=== PATIENT | male | born 1965 | race Caucasian/White ===

== ENCOUNTER 2017-05-03 10:59 | Inpatient (IN) ==
[2017-05-03] MEDS ORDERED: ONDANSETRON 4 MG/2 ML VIAL IV PRN (15:06)
[2017-05-03] MEDS ORDERED: DEXTROSE 50% 25 GM/50 ML VIAL IV PRN (15:13)
[2017-05-03] MEDS ORDERED: GLUCAGON 1 MG VIAL IM PRN (15:13)
[2017-05-03] MEDS ORDERED: HYDROmorphone 2 MG/1 ML VIAL IV PRN (15:16)
[2017-05-03 16:03] LABS: Basophils % 0.3 % (0.0-0.8); Eosinophils % 0.1 % (0.00-10.9); Hematocrit 43.6 VOL% (42.0-52.0); Hemoglobin 14.1 GM/DL (14.0-18.0); Immature Granulocytes % 0.4 %; Immature Granulocytes Absolute 0.05 #; Lymphocytes # 1.1 10*3/uL (1.4-4.0); Lymphocytes % 9.3 % (21.2-54.2); Mean Corpuscular HGB Conc 32.3 GM/DL (32-36); Mean Corpuscular Hemoglobin 32 PG (27-34); Mean Corpuscular Volume 97.8 FL (87-102); Mean Platelet Volume 10.9 FL (9.6-12.0); Monocytes # 0.5 10*3/uL (0.11-0.8); Monocytes % 4.3 % (1.7-12.7); Neutrophils # 9.7 10*3/uL (1.4-7.4); Neutrophils % 85.6 % (38.7-73.9); Platelet Count 224 T/CUMM (130-400); Red Blood Count 4.46 MC/CUMM (3.8-5.5); Red Cell Distribution Width 13.6 % (9.3-17.3); White Blood Count 11.3 T/CUMM (4-12)
[2017-05-03 16:27] LABS: Calcium 9.6 MG/DL (8.5-10.1); Osmolality,Calculated 281.1 MOS/KG (273-304); Potassium 3.9 MMOL/L (3.5-5.1)
[2017-05-03 16:30] LABS: Albumin 3.7 G/DL (3.4-5.0); Bilirubin,Direct 3.17 MG/DL (0.0-0.20); Bilirubin,Total 4.2 MG/DL (0.2-1.0); Total Protein 6.9 G/DL (6.4-8.3)
[2017-05-03 16:39] LABS: Risk Ratio 3.01; VLDL CHOLESTEROL 17.4 MG/DL
[2017-05-03] MEDS: SODIUM CHLORIDE 0.9% 1,000 ML IV SCH (16:59)
[2017-05-03] MEDS: INSULIN LISPRO 100 UNIT/ML SUBCUT SCH ×2 (17:00→20:51)
[2017-05-03 17:15] LABS: Troponin I Only < 0.015 NG/ML (0.00-0.045)
[2017-05-03 18:06] LABS: Hepatitis A Ab IgM Quant 0.08 Index; Hepatitis A Ab IgM Result Negative (Negative); Hepatitis B Core IgM Quant 0.21 Index; Hepatitis B Core IgM Result Negative (Negative); Hepatitis B Surface Ag Quant < 0.10 Index; Hepatitis B Surface Ag Result Negative (Negative); Hepatitis C Virus Ab Quant 0.09 Index; Hepatitis C Virus Ab Result Negative (Negative)
[2017-05-03 18:10] LABS: Apearance,Urine CLEAR (Clear); Bilirubin,Urine Negative (Negative); Blood, Urine Negative (Negative); Glucose,Urine (UA) 50 mg/dL (Negative); Ketones,Urine 20 mg/dL (Negative); Mucus,Urine Occasional /LPF (Occasional); Nitrite,Urine Negative (Negative); Protein,Urine Negative; RBC,Urine <1 /HPF (0-4); Urine Color Amber (Yellow); Urine Specific Gravity 1.011 (1.001-1.035); WBC,Urine 2 /HPF (0-6)
[2017-05-03] MEDS: PIPERACILLIN/TAZOBACTAM 3,375 MG in SODIUM CHLORIDE 0.9% 100 ML IV SCH (19:46)
[2017-05-03 21:29] LABS: Troponin I Only < 0.015 NG/ML (0.00-0.045)
[2017-05-03] MEDS: METOPROLOL TARTRATE 25 MG TABLET PO SCH (22:11)
[2017-05-04] MEDS: PIPERACILLIN/TAZOBACTAM 3,375 MG in SODIUM CHLORIDE 0.9% 100 ML IV SCH ×3 (02:08→17:13)
[2017-05-04 02:49] LABS: Basophils % 0.2 % (0.0-0.8); Eosinophils % 0.2 % (0.00-10.9); Hemoglobin 13.1 GM/DL (14.0-18.0); Immature Granulocytes % 0.3 %; Immature Granulocytes Absolute 0.04 #; Lymphocytes # 1.7 10*3/uL (1.4-4.0); Lymphocytes % 13.4 % (21.2-54.2); Mean Corpuscular HGB Conc 33.6 GM/DL (32-36); Mean Corpuscular Hemoglobin 32 PG (27-34); Mean Corpuscular Volume 95.6 FL (87-102); Mean Platelet Volume 11.1 FL (9.6-12.0); Neutrophils # 9.8 10*3/uL (1.4-7.4); Neutrophils % 77.9 % (38.7-73.9); Platelet Count 212 T/CUMM (130-400); Red Blood Count 4.08 MC/CUMM (3.8-5.5); Red Cell Distribution Width 13.5 % (9.3-17.3); White Blood Count 12.5 T/CUMM (4-12)
[2017-05-04 03:06] LABS: Calcium 9.1 MG/DL (8.5-10.1); Osmolality,Calculated 286.7 MOS/KG (273-304); Potassium 3.2 MMOL/L (3.5-5.1)
[2017-05-04 03:18] LABS: Albumin 3.2 G/DL (3.4-5.0); Bilirubin,Direct 2.15 MG/DL (0.0-0.20); Bilirubin,Indirect 0.7 MG/DL (0.0-1.0); Bilirubin,Total 2.8 MG/DL (0.2-1.0)
[2017-05-04 03:19] LABS: Troponin I Only < 0.015 NG/ML (0.00-0.045)
[2017-05-04] MEDS: PANTOPRAZOLE 40 MG TABLET PO SCH (08:53)
[2017-05-04] MEDS: glipiZIDE 5 MG TABLET PO SCH (08:54)
[2017-05-04] MEDS: MULTIVITAMIN (CENTRUM) TABLET PO SCH (08:54)
[2017-05-04] MEDS: INSULIN LISPRO 100 UNIT/ML SUBCUT SCH ×4 (10:17→20:12)
[2017-05-04] MEDS: SODIUM CHLORIDE 0.9% 1,000 ML IV SCH ×3 (10:18→20:11)
[2017-05-04] MEDS: METOPROLOL TARTRATE 25 MG TABLET PO SCH ×2 (10:20→20:11)
[2017-05-05] MEDS: PIPERACILLIN/TAZOBACTAM 3,375 MG in SODIUM CHLORIDE 0.9% 100 ML IV SCH ×3 (02:03→17:27)
[2017-05-05 04:40] LABS: Basophils % 0.2 % (0.0-0.8); Eosinophils # 0.1 10*3/uL (0.0-0.87); Hematocrit 33.2 VOL% (42.0-52.0); Hemoglobin 11.2 GM/DL (14.0-18.0); Immature Granulocytes % 0.4 %; Immature Granulocytes Absolute 0.04 #; Lymphocytes # 1.2 10*3/uL (1.4-4.0); Lymphocytes % 11.9 % (21.2-54.2); Mean Corpuscular HGB Conc 33.7 GM/DL (32-36); Mean Corpuscular Hemoglobin 32 PG (27-34); Mean Corpuscular Volume 94.9 FL (87-102); Mean Platelet Volume 11.3 FL (9.6-12.0); Monocytes # 0.8 10*3/uL (0.11-0.8); Monocytes % 8.5 % (1.7-12.7); Neutrophils # 7.7 10*3/uL (1.4-7.4); Platelet Count 156 T/CUMM (130-400); Red Cell Distribution Width 13.8 % (9.3-17.3); White Blood Count 9.9 T/CUMM (4-12)
[2017-05-05 05:06] LABS: Calcium 8.5 MG/DL (8.5-10.1); Osmolality,Calculated 282.8 MOS/KG (273-304); Potassium 2.9 MMOL/L (3.5-5.1)
[2017-05-05] MEDS ORDERED: POTASSIUM CHLORIDE INJ 50 MEQ in SODIUM CHLORIDE 0.9% 475 ML IV SCH (06:00)
[2017-05-05] MEDS: MULTIVITAMIN (CENTRUM) TABLET PO SCH (08:32)
[2017-05-05] MEDS: PANTOPRAZOLE 40 MG TABLET PO SCH (08:32)
[2017-05-05] MEDS: glipiZIDE 5 MG TABLET PO SCH (08:32)
[2017-05-05] MEDS: METOPROLOL TARTRATE 25 MG TABLET PO SCH ×2 (08:33→21:44)
[2017-05-05] MEDS: INSULIN LISPRO 100 UNIT/ML SUBCUT SCH ×3 (08:37→21:38)
[2017-05-05] MEDS: SODIUM CHLORIDE 0.9% 1,000 ML IV SCH ×3 (08:38→21:41)
[2017-05-06] MEDS: PIPERACILLIN/TAZOBACTAM 3,375 MG in SODIUM CHLORIDE 0.9% 100 ML IV SCH ×3 (01:57→17:36)
[2017-05-06 05:14] LABS: Bilirubin,Total 1.8 MG/DL (0.2-1.0); Calcium 8.3 MG/DL (8.5-10.1); Osmolality,Calculated 283.7 MOS/KG (273-304); Potassium 3.3 MMOL/L (3.5-5.1); Total Protein 4.6 G/DL (6.4-8.3)
[2017-05-06] MEDS: SODIUM CHLORIDE 0.9% 1,000 ML IV SCH ×2 (06:55→16:11)
[2017-05-06] MEDS: INSULIN LISPRO 100 UNIT/ML SUBCUT SCH ×4 (08:10→20:54)
[2017-05-06] MEDS ORDERED: REGADENOSON 0.4 MG/5 ML SYRINGE IV ONE (08:21)
[2017-05-06] MEDS: MULTIVITAMIN (CENTRUM) TABLET PO SCH (11:26)
[2017-05-06] MEDS: glipiZIDE 5 MG TABLET PO SCH (11:27)
[2017-05-06] MEDS: METOPROLOL TARTRATE 25 MG TABLET PO SCH ×2 (11:28→20:43)
[2017-05-06] MEDS: PANTOPRAZOLE 40 MG TABLET PO SCH (11:28)
[2017-05-06] MEDS ORDERED: MAGNESIUM SULF RIDER 2 GM in PREMIX 1 EACH IV PRN (14:46)
[2017-05-06] MEDS ORDERED: POTASSIUM CHLORIDE RIDER 10 MEQ in PREMIX 1 EACH IV PRN (14:46)
[2017-05-06 15:33] LABS: PT Patient Result 10.5 SECS
[2017-05-06] MEDS: diphenhydrAMINE CAP 25 MG CAPSULE PO SCH ×2 (15:39→20:43)
[2017-05-06] MEDS: FAMOTIDINE 20 MG/2 ML VIAL IV SCH (15:40)
[2017-05-06] MEDS: methylPREDNISolone SOD SUC 125 MG/2 ML VIAL IV SCH ×2 (15:42→20:43)
[2017-05-07] MEDS: PIPERACILLIN/TAZOBACTAM 3,375 MG in SODIUM CHLORIDE 0.9% 100 ML IV SCH ×3 (03:18→17:16)
[2017-05-07] MEDS: diphenhydrAMINE CAP 25 MG CAPSULE PO SCH ×4 (03:19→21:24)
[2017-05-07] MEDS: FAMOTIDINE 20 MG/2 ML VIAL IV SCH ×2 (03:19→14:52)
[2017-05-07] MEDS: methylPREDNISolone SOD SUC 125 MG/2 ML VIAL IV SCH ×4 (03:22→21:23)
[2017-05-07] MEDS: SODIUM CHLORIDE 0.9% 1,000 ML IV SCH ×2 (05:12→12:50)
[2017-05-07 05:16] LABS: Basophils % 0.2 % (0.0-0.8); Hematocrit 35.4 VOL% (42.0-52.0); Hemoglobin 11.3 GM/DL (14.0-18.0); Immature Granulocytes % 0.3 %; Immature Granulocytes Absolute 0.02 #; Lymphocytes # 0.7 10*3/uL (1.4-4.0); Lymphocytes % 11.3 % (21.2-54.2); Mean Corpuscular HGB Conc 31.9 GM/DL (32-36); Mean Corpuscular Hemoglobin 31 PG (27-34); Mean Corpuscular Volume 98.3 FL (87-102); Mean Platelet Volume 11.4 FL (9.6-12.0); Monocytes % 0.5 % (1.7-12.7); Neutrophils # 5.3 10*3/uL (1.4-7.4); Neutrophils % 87.7 % (38.7-73.9); Platelet Count 213 T/CUMM (130-400); Red Cell Distribution Width 13.6 % (9.3-17.3)
[2017-05-07 05:36] LABS: Hypochromasia 1+; Lymphocytes 12 % (20-55); Platelet Estimate Adequate; Segmented Neutrophils 87 % (50-85); Total Cells Counted 100
[2017-05-07 05:37] LABS: Giant Platelets Few
[2017-05-07 05:45] LABS: Calcium 9.2 MG/DL (8.5-10.1); Potassium 3.9 MMOL/L (3.5-5.1)
[2017-05-07 05:47] LABS: Albumin 2.9 G/DL (3.4-5.0); Bilirubin,Direct 0.73 MG/DL (0.0-0.20); Bilirubin,Indirect 0.4 MG/DL (0.0-1.0); Bilirubin,Total 1.1 MG/DL (0.2-1.0); Total Protein 6.5 G/DL (6.4-8.3)
[2017-05-07] MEDS ORDERED: diphenhydrAMINE CAP 25 MG CAPSULE PO ONE (07:00)
[2017-05-07] MEDS ORDERED: DIAZEPAM 5 MG TABLET PO ONE (07:00)
[2017-05-07] MEDS: INSULIN LISPRO 100 UNIT/ML SUBCUT SCH ×4 (08:20→21:24)
[2017-05-07] MEDS: METOPROLOL TARTRATE 25 MG TABLET PO SCH ×2 (08:20→21:24)
[2017-05-07] MEDS: glipiZIDE 5 MG TABLET PO SCH (08:23)
[2017-05-07] MEDS ORDERED: NITROGLYCERIN DRIP 50 MG/250 ML BOTTLE IV ONE (08:36)
[2017-05-07] MEDS ORDERED: LIDOCAINE 1% 20 ML VIAL ONE (08:36)
[2017-05-07] MEDS ORDERED: MIDAZOLAM 2 MG/2 ML VIAL ONE (08:37)
[2017-05-07] MEDS ORDERED: VERAPAMIL 5 MG/2 ML VIAL ONE (08:37)
[2017-05-07] MEDS ORDERED: fentaNYL 100 MCG/2 ML VIAL ONE (08:37)
[2017-05-07] MEDS ORDERED: ENOXAPARIN 30 MG/0.3 ML SYRINGE ONE (09:05)
[2017-05-07] MEDS: PANTOPRAZOLE 40 MG TABLET PO SCH (10:01)
[2017-05-07] MEDS: MULTIVITAMIN (CENTRUM) TABLET PO SCH (10:02)
[2017-05-07] MEDS ORDERED: ACETAMINOPHEN 325 MG TABLET PO PRN (10:51)
[2017-05-08] MEDS: SODIUM CHLORIDE 0.9% 1,000 ML IV SCH ×3 (01:10→18:49)
[2017-05-08] MEDS: PIPERACILLIN/TAZOBACTAM 3,375 MG in SODIUM CHLORIDE 0.9% 100 ML IV SCH ×3 (01:11→19:21)
[2017-05-08] MEDS: FAMOTIDINE 20 MG/2 ML VIAL IV SCH ×2 (02:34→15:33)
[2017-05-08] MEDS: diphenhydrAMINE CAP 25 MG CAPSULE PO SCH ×4 (02:34→20:56)
[2017-05-08] MEDS: methylPREDNISolone SOD SUC 125 MG/2 ML VIAL IV SCH ×4 (02:34→20:56)
[2017-05-08 05:06] LABS: Hematocrit 32.4 VOL% (42.0-52.0); Hemoglobin 10.9 GM/DL (14.0-18.0); Immature Granulocytes % 0.6 %; Immature Granulocytes Absolute 0.03 #; Lymphocytes # 0.6 10*3/uL (1.4-4.0); Lymphocytes % 10.7 % (21.2-54.2); Mean Corpuscular HGB Conc 33.6 GM/DL (32-36); Mean Corpuscular Hemoglobin 32 PG (27-34); Mean Platelet Volume 11.1 FL (9.6-12.0); Monocytes # 0.1 10*3/uL (0.11-0.8); Monocytes % 1.7 % (1.7-12.7); Neutrophils # 4.6 10*3/uL (1.4-7.4); Platelet Count 202 T/CUMM (130-400); Red Blood Count 3.41 MC/CUMM (3.8-5.5); Red Cell Distribution Width 13.6 % (9.3-17.3); White Blood Count 5.3 T/CUMM (4-12)
[2017-05-08 05:22] LABS: Calcium 8.9 MG/DL (8.5-10.1); Osmolality,Calculated 292.7 MOS/KG (273-304); Potassium 3.9 MMOL/L (3.5-5.1)
[2017-05-08] MEDS: MULTIVITAMIN (CENTRUM) TABLET PO SCH (09:18)
[2017-05-08] MEDS: glipiZIDE 5 MG TABLET PO SCH (09:18)
[2017-05-08] MEDS: PANTOPRAZOLE 40 MG TABLET PO SCH (09:19)
[2017-05-08] MEDS: INSULIN LISPRO 100 UNIT/ML SUBCUT SCH ×4 (09:19→20:58)
[2017-05-08] MEDS: METOPROLOL TARTRATE 25 MG TABLET PO SCH (09:28)
[2017-05-09] MEDS: PIPERACILLIN/TAZOBACTAM 3,375 MG in SODIUM CHLORIDE 0.9% 100 ML IV SCH ×3 (01:11→21:17)
[2017-05-09] MEDS: diphenhydrAMINE CAP 25 MG CAPSULE PO SCH ×3 (02:22→21:11)
[2017-05-09] MEDS: FAMOTIDINE 20 MG/2 ML VIAL IV SCH ×2 (02:26→22:01)
[2017-05-09] MEDS: methylPREDNISolone SOD SUC 125 MG/2 ML VIAL IV SCH ×4 (02:28→21:00)
[2017-05-09 05:36] LABS: Hematocrit 33.5 VOL% (42.0-52.0); Hemoglobin 11.3 GM/DL (14.0-18.0); Immature Granulocytes % 0.6 %; Immature Granulocytes Absolute 0.03 #; Lymphocytes # 0.5 10*3/uL (1.4-4.0); Lymphocytes % 11.5 % (21.2-54.2); Mean Corpuscular HGB Conc 33.7 GM/DL (32-36); Mean Corpuscular Hemoglobin 32 PG (27-34); Mean Corpuscular Volume 95.4 FL (87-102); Mean Platelet Volume 10.8 FL (9.6-12.0); Monocytes # 0.2 10*3/uL (0.11-0.8); Monocytes % 3.4 % (1.7-12.7); Neutrophils % 84.5 % (38.7-73.9); Platelet Count 212 T/CUMM (130-400); Red Blood Count 3.51 MC/CUMM (3.8-5.5); Red Cell Distribution Width 13.5 % (9.3-17.3); White Blood Count 4.7 T/CUMM (4-12)
[2017-05-09 06:20] LABS: Albumin 2.5 G/DL (3.4-5.0); Bilirubin,Total 0.9 MG/DL (0.2-1.0); Osmolality,Calculated 290.8 MOS/KG (273-304); Potassium 3.7 MMOL/L (3.5-5.1); Total Protein 5.6 G/DL (6.4-8.3)
[2017-05-09] MEDS: glipiZIDE 5 MG TABLET PO SCH (10:09)
[2017-05-09] MEDS: INSULIN LISPRO 100 UNIT/ML SUBCUT SCH ×4 (10:09→21:14)
[2017-05-09] MEDS: SODIUM CHLORIDE 0.9% 1,000 ML IV SCH ×2 (10:10→23:00)
[2017-05-09] MEDS: MULTIVITAMIN (CENTRUM) TABLET PO SCH (10:11)
[2017-05-09] MEDS ORDERED: TISSUE ADHESIVE 1 EACH APPLICATOR TOP ONE (13:10)
[2017-05-09] MEDS ORDERED: BUPIVACAINE MPF 0.25% /EPI 30 ML VIAL ONE (13:11)
[2017-05-09] MEDS ORDERED: ONDANSETRON 4 MG/2 ML VIAL IV PRN (15:16)
[2017-05-09] MEDS: MORPHINE 10 MG/1 ML VIAL IV PRN ×6 (15:20→21:12)
[2017-05-09] MEDS ORDERED: SEVOFLURANE 1 UNIT/15 MINUTE INH ONE (15:20)
[2017-05-09] MEDS ORDERED: PROPOFOL 200 MG/20 ML VIAL IV ONE (15:20)
[2017-05-09] MEDS ORDERED: GLYCOPYRROLATE 0.4 MG/2 ML VIAL ONE (15:21)
[2017-05-09] MEDS ORDERED: ROCURONIUM 100 MG/10 ML VIAL IV ONE (15:21)
[2017-05-09] MEDS ORDERED: fentaNYL 100 MCG/2 ML VIAL ONE (15:21)
[2017-05-09] MEDS ORDERED: MIDAZOLAM 2 MG/2 ML VIAL ONE ×2 (15:21→15:23)
[2017-05-09] MEDS ORDERED: PHENYLEPHRINE 0.5% NASAL SPRAY 15 ML BOTTLE BOTH NARES ONE (15:21)
[2017-05-09] MEDS ORDERED: SODIUM CHLORIDE 0.9% 1,000 ML IV ONE (15:22)
[2017-05-09] MEDS ORDERED: ACETAMINOPHEN 1,000 MG/100 ML VIAL IV ONE (15:22)
[2017-05-09] MEDS ORDERED: SUGAMMADEX 200 MG/2 ML VIAL IV ONE (15:24)
[2017-05-09] MEDS ORDERED: MIDAZOLAM 2 MG/2 ML VIAL IV ONE (15:34)
[2017-05-09] MEDS: CLORAZEPATE 7.5 MG TABLET PO PRN (16:40)
[2017-05-09] MEDS ORDERED: ZIPRASIDONE 20 MG/1 ML VIAL IM ONE (16:48)
[2017-05-09] MEDS: PANTOPRAZOLE 40 MG TABLET PO SCH (22:00)
[2017-05-10] MEDS: MORPHINE 10 MG/1 ML VIAL IV PRN ×4 (02:59→22:01)
[2017-05-10] MEDS: FAMOTIDINE 20 MG/2 ML VIAL IV SCH ×2 (03:10→15:40)
[2017-05-10] MEDS: diphenhydrAMINE CAP 25 MG CAPSULE PO SCH ×4 (03:10→21:45)
[2017-05-10] MEDS: methylPREDNISolone SOD SUC 125 MG/2 ML VIAL IV SCH ×4 (03:12→21:41)
[2017-05-10] MEDS ORDERED: ZIPRASIDONE 20 MG/1 ML VIAL IM ONE (04:31)
[2017-05-10] MEDS: PIPERACILLIN/TAZOBACTAM 3,375 MG in SODIUM CHLORIDE 0.9% 100 ML IV SCH ×3 (05:03→21:48)
[2017-05-10] MEDS: SODIUM CHLORIDE 0.9% 1,000 ML IV SCH ×3 (07:33→20:06)
[2017-05-10] MEDS ORDERED: NOREPINEPHRINE 16 MG in SODIUM CHLORIDE 0.9% 234 ML IV SCH (08:30)
[2017-05-10] MEDS: INSULIN LISPRO 100 UNIT/ML SUBCUT SCH ×4 (09:44→21:44)
[2017-05-10] MEDS: PANTOPRAZOLE 40 MG TABLET PO SCH (09:49)
[2017-05-10] MEDS: MULTIVITAMIN (CENTRUM) TABLET PO SCH (10:28)
[2017-05-10] MEDS: glipiZIDE 5 MG TABLET PO SCH (10:28)
[2017-05-10] MEDS: DILTIAZEM INJ 100 MG in SODIUM CHLORIDE 0.9% 100 ML IV SCH (11:00)
[2017-05-10] MEDS ORDERED: DILTIAZEM 100 MG VIAL.ADD IV ONE (11:07)
[2017-05-10] MEDS: HALOPERIDOL 5 MG/ML AMP IV PRN ×2 (11:33→21:45)
[2017-05-10] MEDS: ENOXAPARIN 60 MG/0.6 ML SYRINGE SUBCUT SCH (14:14)
[2017-05-10] MEDS: CLORAZEPATE 7.5 MG TABLET PO PRN (14:50)
[2017-05-11] MEDS: ENOXAPARIN 60 MG/0.6 ML SYRINGE SUBCUT SCH ×2 (01:30→14:33)
[2017-05-11] MEDS: SODIUM CHLORIDE 0.9% 1,000 ML IV SCH ×3 (01:31→21:17)
[2017-05-11] MEDS: MORPHINE 10 MG/1 ML VIAL IV PRN ×2 (01:36→09:07)
[2017-05-11] MEDS: diphenhydrAMINE CAP 25 MG CAPSULE PO SCH (03:59)
[2017-05-11] MEDS: FAMOTIDINE 20 MG/2 ML VIAL IV SCH (04:06)
[2017-05-11] MEDS: methylPREDNISolone SOD SUC 125 MG/2 ML VIAL IV SCH (04:10)
[2017-05-11] MEDS: PIPERACILLIN/TAZOBACTAM 3,375 MG in SODIUM CHLORIDE 0.9% 100 ML IV SCH ×3 (05:10→21:15)
[2017-05-11 06:27] LABS: Basophils % 0.1 % (0.0-0.8); Hemoglobin 13.2 GM/DL (14.0-18.0); Immature Granulocytes % 0.5 %; Immature Granulocytes Absolute 0.06 #; Lymphocytes # 0.3 10*3/uL (1.4-4.0); Mean Corpuscular HGB Conc 32.2 GM/DL (32-36); Mean Corpuscular Hemoglobin 32 PG (27-34); Mean Platelet Volume 10.5 FL (9.6-12.0); Monocytes # 0.4 10*3/uL (0.11-0.8); Monocytes % 2.8 % (1.7-12.7); Neutrophils % 94.6 % (38.7-73.9); Platelet Count 264 T/CUMM (130-400); Red Cell Distribution Width 14.4 % (9.3-17.3); White Blood Count 12.7 T/CUMM (4-12)
[2017-05-11 06:59] LABS: Calcium 9.2 MG/DL (8.5-10.1); Potassium 3.9 MMOL/L (3.5-5.1)
[2017-05-11 07:09] LABS: Lymphocytes 3 % (20-55); Segmented Neutrophils 94 % (50-85); Total Cells Counted 100
[2017-05-11 07:10] LABS: Hypochromasia Slight; Macrocytosis Slight; Platelet Estimate Normal
[2017-05-11] MEDS: HALOPERIDOL 5 MG/ML AMP IV PRN (08:30)
[2017-05-11] MEDS: INSULIN LISPRO 100 UNIT/ML SUBCUT SCH ×4 (08:52→21:15)
[2017-05-11] MEDS: MULTIVITAMIN (CENTRUM) TABLET PO SCH (09:24)
[2017-05-11] MEDS: glipiZIDE 5 MG TABLET PO SCH (09:24)
[2017-05-11] MEDS: PANTOPRAZOLE 40 MG TABLET PO SCH (09:24)
[2017-05-11] MEDS ORDERED: LORazepam 2 MG/1 ML VIAL ONE (09:59)
[2017-05-11] MEDS: LORazepam 2 MG/1 ML VIAL IV PRN ×2 (10:00→22:00)
[2017-05-11] MEDS ORDERED: DEXTROSE 10% 1,000 ML IV PRN (17:00)
[2017-05-11] MEDS: FAT EMULSION 20% 250 ML IV SCH (17:48)
[2017-05-11] MEDS: TRACE ELEMENTS (5) 1 ML, MULTIVITAMIN INJ 10 ML in AMINO ACIDS/DEXT/LYTES 4.25-5% 2,000 ML IV SCH (17:49)
[2017-05-11] MEDS: methylPREDNISolone SOD SUC 40 MG/1 ML VIAL IV SCH (21:09)
[2017-05-11] MEDS: DILTIAZEM INJ 100 MG in SODIUM CHLORIDE 0.9% 100 ML IV SCH (21:18)
[2017-05-11 22:23] LABS: Apearance,Urine CLEAR (Clear); Bacteria,Urine Occasional /HPF (Few); Bilirubin,Urine Negative (Negative); Blood, Urine Negative (Negative); Glucose,Urine (UA) 150 mg/dL (Negative); Ketones,Urine Negative (Negative); Nitrite,Urine Negative (Negative); Protein,Urine Negative; RBC,Urine <1 /HPF (0-4); Urine Color Straw (Yellow); Urine Specific Gravity 1.006 (1.001-1.035); Urine Urobilinogen < 2.0 EU/DL (0.2-1.0); WBC,Urine <1 /HPF (0-6)
[2017-05-12] MEDS: FUROSEMIDE 40 MG/4 ML VIAL IV SCH
[2017-05-12] MEDS: ENOXAPARIN 60 MG/0.6 ML SYRINGE SUBCUT SCH (01:04)
[2017-05-12] MEDS: PIPERACILLIN/TAZOBACTAM 3,375 MG in SODIUM CHLORIDE 0.9% 100 ML IV SCH ×3 (05:42→23:51)
[2017-05-12] MEDS: SODIUM CHLORIDE 0.9% 1,000 ML IV SCH ×3 (05:43→23:53)
[2017-05-12 06:31] LABS: Basophils % 0.1 % (0.0-0.8); Hematocrit 39.3 VOL% (42.0-52.0); Hemoglobin 13.4 GM/DL (14.0-18.0); Immature Granulocytes % 0.4 %; Immature Granulocytes Absolute 0.05 #; Lymphocytes # 0.7 10*3/uL (1.4-4.0); Lymphocytes % 6.1 % (21.2-54.2); Mean Corpuscular HGB Conc 34.1 GM/DL (32-36); Mean Corpuscular Hemoglobin 33 PG (27-34); Mean Corpuscular Volume 96.1 FL (87-102); Mean Platelet Volume 10.6 FL (9.6-12.0); Monocytes # 0.6 10*3/uL (0.11-0.8); Monocytes % 5.1 % (1.7-12.7); Neutrophils # 10.6 10*3/uL (1.4-7.4); Neutrophils % 88.3 % (38.7-73.9); Platelet Count 243 T/CUMM (130-400); Red Blood Count 4.09 MC/CUMM (3.8-5.5); Red Cell Distribution Width 13.9 % (9.3-17.3)
[2017-05-12] MEDS ORDERED: FUROSEMIDE 40 MG/4 ML VIAL IV ONE (07:02)
[2017-05-12 07:12] LABS: Calcium 8.4 MG/DL (8.5-10.1); Osmolality,Calculated 294.7 MOS/KG (273-304); Potassium 3.4 MMOL/L (3.5-5.1)
[2017-05-12] MEDS: ENOXAPARIN 40 MG/0.4 ML SYRINGE SUBCUT SCH (07:37)
[2017-05-12 07:40] LABS: ABG HCO3 35.7 MMOL/L (20-26); ABG Oxygen Saturation 93.6 % (95-100); ABG PCO2 53.3 MM HG (35-48); ABG PH 7.462 (7.35-7.45); ABG TCO2 33.7 MMOL/L (23-27)
[2017-05-12] MEDS: ALBUTEROL/IPRATROPIUM 3 ML NEB RESP TX SCH ×5 (07:41→22:37)
[2017-05-12] MEDS: methylPREDNISolone SOD SUC 40 MG/1 ML VIAL IV SCH ×2 (10:10→23:50)
[2017-05-12] MEDS: MULTIVITAMIN (CENTRUM) TABLET PO SCH (10:49)
[2017-05-12] MEDS: glipiZIDE 5 MG TABLET PO SCH (10:49)
[2017-05-12] MEDS: VANCOMYCIN INJ 750 MG in SODIUM CHLORIDE 0.9% 250 ML IV SCH ×2 (10:50→23:51)
[2017-05-12] MEDS: PANTOPRAZOLE 40 MG VIAL IV SCH (10:56)
[2017-05-12] MEDS ORDERED: INSULIN LISPRO 100 UNIT/ML SUBCUT SCH (12:00)
[2017-05-12] MEDS: DILTIAZEM INJ 100 MG in SODIUM CHLORIDE 0.9% 100 ML IV SCH (12:20)
[2017-05-12] MEDS: INSULIN LISPRO 100 UNIT/ML SUBCUT SCH ×3 (13:20→23:53)
[2017-05-12] MEDS: POTASSIUM CHLORIDE RIDER 10 MEQ in PREMIX 1 EACH IV PRN ×4 (14:00→23:50)
[2017-05-12] MEDS: FAT EMULSION 20% 250 ML IV SCH (14:05)
[2017-05-12] MEDS: LORazepam 2 MG/1 ML VIAL IV PRN (14:31)
[2017-05-12] MEDS: TRACE ELEMENTS (5) 1 ML, MULTIVITAMIN INJ 10 ML in AMINO ACIDS/DEXT/LYTES 4.25-5% 2,000 ML IV SCH (19:52)
[2017-05-12 21:51] LABS: Potassium 3.1 MMOL/L (3.5-5.1)
[2017-05-12] MEDS: PANTOPRAZOLE 40 MG TABLET PO SCH (23:53)
[2017-05-13] MEDS: POTASSIUM CHLORIDE RIDER 10 MEQ in PREMIX 1 EACH IV PRN ×3 (00:51→03:01)
[2017-05-13] MEDS: ALBUTEROL/IPRATROPIUM 3 ML NEB RESP TX SCH ×6 (02:28→23:19)
[2017-05-13] MEDS: INSULIN LISPRO 100 UNIT/ML SUBCUT SCH ×5 (03:14→23:45)
[2017-05-13 03:43] LABS: ABG Base Excess 11.8 MMOL/L (-2.5-2.5); ABG HCO3 35.5 MMOL/L (20-26); ABG Oxygen Saturation 94.6 % (95-100); ABG PH 7.489 (7.35-7.45); ABG PO2 66.8 MM HG (80-95); ABG TCO2 32.4 MMOL/L (23-27)
[2017-05-13 04:46] LABS: Basophils % 0.1 % (0.0-0.8); Hematocrit 40.8 VOL% (42.0-52.0); Immature Granulocytes % 0.5 %; Immature Granulocytes Absolute 0.06 #; Lymphocytes # 0.4 10*3/uL (1.4-4.0); Lymphocytes % 3.2 % (21.2-54.2); Mean Corpuscular HGB Conc 34.3 GM/DL (32-36); Mean Corpuscular Hemoglobin 32 PG (27-34); Mean Corpuscular Volume 92.9 FL (87-102); Mean Platelet Volume 10.8 FL (9.6-12.0); Monocytes # 0.2 10*3/uL (0.11-0.8); Monocytes % 1.5 % (1.7-12.7); Neutrophils # 11.4 10*3/uL (1.4-7.4); Neutrophils % 94.7 % (38.7-73.9); Platelet Count 332 T/CUMM (130-400); Red Blood Count 4.39 MC/CUMM (3.8-5.5); Red Cell Distribution Width 13.4 % (9.3-17.3)
[2017-05-13 05:14] LABS: Calcium 8.9 MG/DL (8.5-10.1); Osmolality,Calculated 295.4 MOS/KG (273-304); Potassium 3.9 MMOL/L (3.5-5.1)
[2017-05-13 05:17] LABS: Prealbumin 12.2 MG/DL (20-40)
[2017-05-13 05:44] LABS: Giant Platelets Few; Hypochromasia 1+; Lymphocytes 3 % (20-55); Ovalocytes Slight; Platelet Estimate Adequate; Segmented Neutrophils 97 % (50-85); Total Cells Counted 100
[2017-05-13] MEDS: PIPERACILLIN/TAZOBACTAM 3,375 MG in SODIUM CHLORIDE 0.9% 100 ML IV SCH ×3 (06:30→22:04)
[2017-05-13] MEDS: ENOXAPARIN 40 MG/0.4 ML SYRINGE SUBCUT SCH (06:50)
[2017-05-13] MEDS ORDERED: LIDOCAINE 2% 20 ML VIAL RESP TX ONE (07:16)
[2017-05-13] MEDS ORDERED: MIDAZOLAM 2 MG/2 ML VIAL IV ONE (07:16)
[2017-05-13] MEDS ORDERED: LIDOCAINE 1% 20 ML VIAL MISC INJ ONE (07:16)
[2017-05-13] MEDS: PANTOPRAZOLE 40 MG VIAL IV SCH (10:11)
[2017-05-13] MEDS: FUROSEMIDE 40 MG/4 ML VIAL IV SCH ×2 (10:11→17:06)
[2017-05-13] MEDS: methylPREDNISolone SOD SUC 40 MG/1 ML VIAL IV SCH ×2 (10:12→22:04)
[2017-05-13] MEDS: VANCOMYCIN INJ 750 MG in SODIUM CHLORIDE 0.9% 250 ML IV SCH ×2 (10:25→22:04)
[2017-05-13] MEDS: MULTIVITAMIN (CENTRUM) TABLET PO SCH (10:38)
[2017-05-13] MEDS: glipiZIDE 5 MG TABLET PO SCH (10:39)
[2017-05-13] MEDS: ASCORBIC ACID 500 MG TABLET PO SCH ×2 (10:42→21:19)
[2017-05-13] MEDS: DILTIAZEM INJ 100 MG in SODIUM CHLORIDE 0.9% 100 ML IV SCH ×2 (13:06→19:20)
[2017-05-13] MEDS: FAT EMULSION 20% 250 ML IV SCH (14:36)
[2017-05-13] MEDS: TRACE ELEMENTS (5) 1 ML, MULTIVITAMIN INJ 10 ML, INSULIN REGULAR 30 UNIT in AMINO ACIDS... IV SCH (17:06)
[2017-05-14] MEDS: DILTIAZEM INJ 100 MG in SODIUM CHLORIDE 0.9% 100 ML IV SCH ×2 (01:26→11:51)
[2017-05-14] MEDS: ALBUTEROL/IPRATROPIUM 3 ML NEB RESP TX SCH ×6 (03:07→23:05)
[2017-05-14 04:36] LABS: Basophils % 0.1 % (0.0-0.8); Hematocrit 37.5 VOL% (42.0-52.0); Immature Granulocytes % 0.5 %; Immature Granulocytes Absolute 0.05 #; Lymphocytes # 0.3 10*3/uL (1.4-4.0); Lymphocytes % 2.7 % (21.2-54.2); Mean Corpuscular HGB Conc 34.7 GM/DL (32-36); Mean Corpuscular Hemoglobin 32 PG (27-34); Mean Corpuscular Volume 93.1 FL (87-102); Mean Platelet Volume 10.8 FL (9.6-12.0); Monocytes # 0.4 10*3/uL (0.11-0.8); Monocytes % 3.6 % (1.7-12.7); Neutrophils # 10.2 10*3/uL (1.4-7.4); Neutrophils % 93.1 % (38.7-73.9); Platelet Count 272 T/CUMM (130-400); Red Blood Count 4.03 MC/CUMM (3.8-5.5); Red Cell Distribution Width 13.2 % (9.3-17.3)
[2017-05-14] MEDS: PIPERACILLIN/TAZOBACTAM 3,375 MG in SODIUM CHLORIDE 0.9% 100 ML IV SCH ×3 (04:42→21:24)
[2017-05-14 05:02] LABS: Calcium 8.7 MG/DL (8.5-10.1); Osmolality,Calculated 291.8 MOS/KG (273-304); Potassium 3.1 MMOL/L (3.5-5.1)
[2017-05-14 05:17] LABS: Giant Platelets Few; Hypochromasia 1+; Lymphocytes 4 % (20-55); Ovalocytes Slight; Platelet Estimate Adequate; Segmented Neutrophils 95 % (50-85); Total Cells Counted 100
[2017-05-14] MEDS ORDERED: POTASSIUM CHLORIDE INJ 40 MEQ in SODIUM CHLORIDE 0.9% 380 ML IV SCH (05:30)
[2017-05-14] MEDS: INSULIN LISPRO 100 UNIT/ML SUBCUT SCH ×4 (05:44→23:15)
[2017-05-14 08:09] LABS: ABG Base Excess 10.6 MMOL/L (-2.5-2.5); ABG Oxygen Saturation 91.6 % (95-100); ABG PCO2 40.4 MM HG (35-48); ABG PH 7.543 (7.35-7.45); ABG PO2 57.7 MM HG (80-95); ABG TCO2 35.2 MMOL/L (23-27); Allen Test Positive
[2017-05-14] MEDS: FUROSEMIDE 40 MG/4 ML VIAL IV SCH ×2 (08:21→17:03)
[2017-05-14] MEDS: ENOXAPARIN 40 MG/0.4 ML SYRINGE SUBCUT SCH (08:22)
[2017-05-14] MEDS: PANTOPRAZOLE 40 MG VIAL IV SCH (08:23)
[2017-05-14] MEDS: glipiZIDE 5 MG TABLET PO SCH (08:56)
[2017-05-14] MEDS: ASCORBIC ACID 500 MG TABLET PO SCH ×2 (08:56→20:21)
[2017-05-14] MEDS: MULTIVITAMIN (CENTRUM) TABLET PO SCH (08:56)
[2017-05-14] MEDS: methylPREDNISolone SOD SUC 40 MG/1 ML VIAL IV SCH ×2 (10:07→21:24)
[2017-05-14] MEDS: VANCOMYCIN INJ 750 MG in SODIUM CHLORIDE 0.9% 250 ML IV SCH ×2 (10:08→21:24)
[2017-05-14] MEDS ORDERED: PROPOFOL 1,000 MG/100 ML BOTTLE IV ONE (14:28)
[2017-05-14] MEDS: PROPOFOL 1,000 MG/100 ML BOTTLE IV SCH (14:50)
[2017-05-14] MEDS: FAT EMULSION 20% 250 ML IV SCH (14:50)
[2017-05-14] MEDS ORDERED: NOREPINEPHRINE 4 MG/4 ML VIAL IV ONE ×2 (15:25→15:26)
[2017-05-14 15:27] LABS: ABG Base Excess 9.9 MMOL/L (-2.5-2.5); ABG HCO3 33.5 MMOL/L (20-26); ABG Oxygen Saturation 94.7 % (95-100); ABG PCO2 37.5 MM HG (35-48); ABG PH 7.552 (7.35-7.45); ABG TCO2 28.9 MMOL/L (23-27); Allen Test Positive; Pt O2 Delivery Device Ventilator
[2017-05-14] MEDS: NOREPINEPHRINE 8 MG in SODIUM CHLORIDE 0.9% 242 ML IV SCH (15:59)
[2017-05-14] MEDS ORDERED: SODIUM CHLORIDE 0.9% 1,000 ML IV ONE (16:01)
[2017-05-14] MEDS: SODIUM CHLORIDE 0.45% 1,000 ML IV SCH (17:12)
[2017-05-14] MEDS: TRACE ELEMENTS (5) 1 ML, MULTIVITAMIN INJ 10 ML, INSULIN REGULAR 30 UNIT in AMINO ACIDS... IV SCH (17:24)
[2017-05-14] MEDS: ENOXAPARIN 60 MG/0.6 ML SYRINGE SUBCUT SCH (17:24)
[2017-05-14 17:27] LABS: ABG Base Excess 6.8 MMOL/L (-2.5-2.5); ABG HCO3 30.6 MMOL/L (20-26); ABG Oxygen Saturation 97.8 % (95-100); ABG PCO2 30.8 MM HG (35-48); ABG PH 7.575 (7.35-7.45); ABG PO2 73.4 MM HG (80-95); Allen Test Positive; Pt O2 Delivery Device Ventilator
[2017-05-15] MEDS: SODIUM CHLORIDE 0.45% 1,000 ML IV SCH ×4 (00:15→17:36)
[2017-05-15] MEDS: PROPOFOL 1,000 MG/100 ML BOTTLE IV SCH ×3 (02:00→14:39)
[2017-05-15] MEDS: ALBUTEROL/IPRATROPIUM 3 ML NEB RESP TX SCH ×6 (03:22→22:47)
[2017-05-15 04:53] LABS: ABG Base Excess 5.5 MMOL/L (-2.5-2.5); ABG HCO3 29.4 MMOL/L (20-26); ABG Oxygen Saturation 99.3 % (95-100); ABG PCO2 32.4 MM HG (35-48)
[2017-05-15] MEDS: NOREPINEPHRINE 8 MG in SODIUM CHLORIDE 0.9% 242 ML IV SCH ×2 (05:30→16:06)
[2017-05-15] MEDS: PIPERACILLIN/TAZOBACTAM 3,375 MG in SODIUM CHLORIDE 0.9% 100 ML IV SCH ×3 (05:44→20:49)
[2017-05-15] MEDS: ENOXAPARIN 60 MG/0.6 ML SYRINGE SUBCUT SCH ×2 (05:45→17:34)
[2017-05-15] MEDS: INSULIN LISPRO 100 UNIT/ML SUBCUT SCH ×3 (05:45→18:26)
[2017-05-15 07:00] LABS: Basophils % 0.1 % (0.0-0.8); Hematocrit 37.2 VOL% (42.0-52.0); Hemoglobin 12.6 GM/DL (14.0-18.0); Immature Granulocytes % 0.6 %; Immature Granulocytes Absolute 0.08 #; Lymphocytes # 0.6 10*3/uL (1.4-4.0); Lymphocytes % 3.9 % (21.2-54.2); Mean Corpuscular HGB Conc 33.9 GM/DL (32-36); Mean Corpuscular Hemoglobin 32 PG (27-34); Mean Corpuscular Volume 93.2 FL (87-102); Mean Platelet Volume 10.7 FL (9.6-12.0); Monocytes # 0.6 10*3/uL (0.11-0.8); Monocytes % 3.9 % (1.7-12.7); Neutrophils # 13.2 10*3/uL (1.4-7.4); Neutrophils % 91.5 % (38.7-73.9); Platelet Count 353 T/CUMM (130-400); Red Blood Count 3.99 MC/CUMM (3.8-5.5); Red Cell Distribution Width 13.1 % (9.3-17.3); White Blood Count 14.5 T/CUMM (4-12)
[2017-05-15 07:25] LABS: Band Neutrophils 1 % (0-10); Hypochromasia Slight; Lymphocytes 4 % (20-55); Microcytosis 1+; Segmented Neutrophils 94 % (50-85); Total Cells Counted 100
[2017-05-15 07:26] LABS: Platelet Estimate Normal
[2017-05-15 07:30] LABS: Calcium 8.6 MG/DL (8.5-10.1); Osmolality,Calculated 297.1 MOS/KG (273-304); Potassium 3.2 MMOL/L (3.5-5.1)
[2017-05-15 08:24] LABS: ABG Base Excess 4.4 MMOL/L (-2.5-2.5); ABG HCO3 28.3 MMOL/L (20-26); ABG Oxygen Saturation 97.8 % (95-100); ABG PCO2 30.4 MM HG (35-48); ABG PH 7.545 (7.35-7.45); ABG TCO2 23.1 MMOL/L (23-27); Pt O2 Delivery Device Ventilator
[2017-05-15] MEDS: FUROSEMIDE 40 MG/4 ML VIAL IV SCH ×2 (11:37→17:00)
[2017-05-15] MEDS: PANTOPRAZOLE 40 MG VIAL IV SCH (11:38)
[2017-05-15] MEDS: methylPREDNISolone SOD SUC 40 MG/1 ML VIAL IV SCH ×2 (11:38→20:48)
[2017-05-15] MEDS: ASCORBIC ACID 500 MG TABLET PO SCH (11:39)
[2017-05-15] MEDS: glipiZIDE 5 MG TABLET PO SCH (11:39)
[2017-05-15] MEDS: MULTIVITAMIN (CENTRUM) TABLET PO SCH (11:39)
[2017-05-15] MEDS: DILTIAZEM INJ 100 MG in SODIUM CHLORIDE 0.9% 100 ML IV SCH (12:17)
[2017-05-15] MEDS ORDERED: POTASSIUM CHLORIDE INJ 40 MEQ in SODIUM CHLORIDE 0.9% 500 ML IV SCH (12:30)
[2017-05-15] MEDS: VANCOMYCIN INJ 750 MG in SODIUM CHLORIDE 0.9% 250 ML IV SCH ×2 (12:49→20:48)
[2017-05-15] MEDS: FAT EMULSION 20% 250 ML IV SCH (14:38)
[2017-05-15] MEDS: TRACE ELEMENTS (5) 1 ML, MULTIVITAMIN INJ 10 ML, INSULIN REGULAR 30 UNIT in AMINO ACIDS... IV SCH (17:37)
[2017-05-15] MEDS ORDERED: SODIUM CHLORIDE 0.9% IV SCH (23:00)
[2017-05-15] MEDS ORDERED: POTASSIUM CHLORIDE IV SCH (23:00)
[2017-05-16] MEDS: INSULIN LISPRO 100 UNIT/ML SUBCUT SCH ×4 (00:40→18:09)
[2017-05-16] MEDS: ALBUTEROL/IPRATROPIUM 3 ML NEB RESP TX SCH ×6 (03:13→23:58)
[2017-05-16 03:24] LABS: ABG Base Excess 0.9 MMOL/L (-2.5-2.5); ABG HCO3 25.2 MMOL/L (20-26); ABG Oxygen Saturation 98.5 % (95-100); ABG PCO2 26.8 MM HG (35-48); ABG PH 7.534 (7.35-7.45); ABG TCO2 20.2 MMOL/L (23-27); Allen Test Positive; Pt O2 Delivery Device Ventilator
[2017-05-16] MEDS: PROPOFOL 1,000 MG/100 ML BOTTLE IV SCH ×3 (04:23→17:24)
[2017-05-16] MEDS: PIPERACILLIN/TAZOBACTAM 3,375 MG in SODIUM CHLORIDE 0.9% 100 ML IV SCH ×3 (05:11→21:40)
[2017-05-16] MEDS: ENOXAPARIN 60 MG/0.6 ML SYRINGE SUBCUT SCH (05:11)
[2017-05-16] MEDS: SODIUM CHLORIDE 0.45% 1,000 ML IV SCH ×5 (07:06→20:40)
[2017-05-16 07:07] LABS: Basophils % 0.1 % (0.0-0.8); Hematocrit 32.5 VOL% (42.0-52.0); Hemoglobin 11.4 GM/DL (14.0-18.0); Immature Granulocytes % 0.7 %; Immature Granulocytes Absolute 0.08 #; Lymphocytes # 0.7 10*3/uL (1.4-4.0); Lymphocytes % 6.5 % (21.2-54.2); Mean Corpuscular HGB Conc 35.1 GM/DL (32-36); Mean Corpuscular Hemoglobin 32 PG (27-34); Mean Platelet Volume 11.5 FL (9.6-12.0); Monocytes # 0.7 10*3/uL (0.11-0.8); Monocytes % 6.4 % (1.7-12.7); Neutrophils # 9.5 10*3/uL (1.4-7.4); Neutrophils % 86.3 % (38.7-73.9); Platelet Count 228 T/CUMM (130-400); Red Blood Count 3.57 MC/CUMM (3.8-5.5); Red Cell Distribution Width 13.4 % (9.3-17.3)
[2017-05-16 07:26] LABS: Calcium 8.3 MG/DL (8.5-10.1); Osmolality,Calculated 297.8 MOS/KG (273-304); Potassium 3.7 MMOL/L (3.5-5.1)
[2017-05-16 07:30] LABS: Prealbumin 11.9 MG/DL (20-40)
[2017-05-16] MEDS: FUROSEMIDE 40 MG/4 ML VIAL IV SCH ×2 (09:36→18:08)
[2017-05-16] MEDS: methylPREDNISolone SOD SUC 40 MG/1 ML VIAL IV SCH ×2 (09:36→20:40)
[2017-05-16] MEDS: PANTOPRAZOLE 40 MG VIAL IV SCH (09:36)
[2017-05-16] MEDS: VANCOMYCIN INJ 750 MG in SODIUM CHLORIDE 0.9% 250 ML IV SCH ×2 (12:42→20:40)
[2017-05-16] MEDS: DILTIAZEM INJ 100 MG in SODIUM CHLORIDE 0.9% 100 ML IV SCH (12:42)
[2017-05-16] MEDS ORDERED: DIGOXIN 0.5 MG/2 ML AMP ONE (14:29)
[2017-05-16] MEDS ORDERED: DIGOXIN 0.5 MG/2 ML AMP IV ONE (14:45)
[2017-05-16] MEDS ORDERED: METOPROLOL TARTRATE 5 MG/5 ML VIAL IV PRN (14:45)
[2017-05-16] MEDS: POTASSIUM CHLORIDE RIDER 20 MEQ in PREMIX 1 EACH IV PRN (14:45)
[2017-05-16] MEDS: FAT EMULSION 20% 250 ML IV SCH (14:59)
[2017-05-16] MEDS: NOREPINEPHRINE 8 MG in SODIUM CHLORIDE 0.9% 242 ML IV SCH ×2 (15:12→23:55)
[2017-05-16] MEDS: TRACE ELEMENTS (5) 1 ML, MULTIVITAMIN INJ 10 ML, INSULIN REGULAR 50 UNIT in AMINO ACIDS... IV SCH (17:23)
[2017-05-16] MEDS: MORPHINE 10 MG/1 ML VIAL IV PRN (19:16)
[2017-05-17] MEDS: INSULIN LISPRO 100 UNIT/ML SUBCUT SCH ×4 (00:10→18:32)
[2017-05-17] MEDS: MORPHINE 10 MG/1 ML VIAL IV PRN (00:50)
[2017-05-17 00:54] LABS: Eosinophils # 0.1 10*3/uL (0.0-0.87); Eosinophils % 0.5 % (0.00-10.9); Hematocrit 33.5 VOL% (42.0-52.0); Hemoglobin 10.9 GM/DL (14.0-18.0); Immature Granulocytes Absolute 0.11 #; Lymphocytes # 1.4 10*3/uL (1.4-4.0); Lymphocytes % 12.9 % (21.2-54.2); Mean Corpuscular HGB Conc 32.5 GM/DL (32-36); Mean Corpuscular Hemoglobin 32 PG (27-34); Mean Corpuscular Volume 97.1 FL (87-102); Mean Platelet Volume 11.1 FL (9.6-12.0); Monocytes # 0.7 10*3/uL (0.11-0.8); Monocytes % 6.3 % (1.7-12.7); Neutrophils # 8.8 10*3/uL (1.4-7.4); Neutrophils % 79.3 % (38.7-73.9); Platelet Count 229 T/CUMM (130-400); Red Blood Count 3.45 MC/CUMM (3.8-5.5); Red Cell Distribution Width 13.4 % (9.3-17.3); White Blood Count 11.1 T/CUMM (4-12)
[2017-05-17 01:17] LABS: Blood Urea Nitrogen 17 MG/DL (7-18); Calcium 7.5 MG/DL (8.5-10.1); Glucose 123 MG/DL (74-106); Osmolality,Calculated 281.4 MOS/KG (273-304); Potassium 2.7 MMOL/L (3.5-5.1); Sodium 140 MMOL/L (136-145); Troponin I Only 0.045 NG/ML (0.00-0.045)
[2017-05-17] MEDS: POTASSIUM CHLORIDE RIDER 20 MEQ in PREMIX 1 EACH IV PRN ×3 (01:28→02:29)
[2017-05-17] MEDS: SODIUM CHLORIDE 0.45% 1,000 ML IV SCH (01:54)
[2017-05-17] MEDS ORDERED: MAGNESIUM SULF RIDER 1 GM in PREMIX 1 EACH IV ONE (02:09)
[2017-05-17] MEDS: ALBUTEROL/IPRATROPIUM 3 ML NEB RESP TX SCH ×6 (03:10→23:42)
[2017-05-17 03:48] LABS: ABG Base Excess 1.6 MMOL/L (-2.5-2.5); ABG HCO3 25.8 MMOL/L (20-26); ABG Oxygen Saturation 97.4 % (95-100); ABG PCO2 41.7 MM HG (35-48); ABG PH 7.409 (7.35-7.45); ABG PO2 97.5 MM HG (80-95); ABG TCO2 23.2 MMOL/L (23-27); Allen Test Positive; Pt O2 Delivery Device Ventilator
[2017-05-17 04:20] LABS: Basophils % 0.1 % (0.0-0.8); Eosinophils # 0.1 10*3/uL (0.0-0.87); Eosinophils % 0.8 % (0.00-10.9); Hematocrit 34.8 VOL% (42.0-52.0); Hemoglobin 11.3 GM/DL (14.0-18.0); Immature Granulocytes % 0.9 %; Immature Granulocytes Absolute 0.11 #; Lymphocytes # 1.8 10*3/uL (1.4-4.0); Lymphocytes % 14.4 % (21.2-54.2); Mean Corpuscular HGB Conc 32.5 GM/DL (32-36); Mean Corpuscular Hemoglobin 32 PG (27-34); Mean Platelet Volume 11.1 FL (9.6-12.0); Monocytes # 0.9 10*3/uL (0.11-0.8); Monocytes % 7.3 % (1.7-12.7); Neutrophils # 9.4 10*3/uL (1.4-7.4); Neutrophils % 76.5 % (38.7-73.9); Platelet Count 236 T/CUMM (130-400); Red Blood Count 3.55 MC/CUMM (3.8-5.5); Red Cell Distribution Width 13.5 % (9.3-17.3); White Blood Count 12.2 T/CUMM (4-12)
[2017-05-17] MEDS: PIPERACILLIN/TAZOBACTAM 3,375 MG in SODIUM CHLORIDE 0.9% 100 ML IV SCH ×3 (04:52→21:02)
[2017-05-17 04:53] LABS: Bilirubin,Total 0.7 MG/DL (0.2-1.0); Osmolality,Calculated 278.5 MOS/KG (273-304); Potassium 4.3 MMOL/L (3.5-5.1); Total Protein 4.7 G/DL (6.4-8.3)
[2017-05-17] MEDS: ENOXAPARIN 40 MG/0.4 ML SYRINGE SUBCUT SCH (07:19)
[2017-05-17] MEDS: LORazepam 2 MG/1 ML VIAL IV PRN ×2 (07:49→20:31)
[2017-05-17] MEDS ORDERED: MAGNESIUM SULF RIDER 2 GM in PREMIX 1 EACH IV ONE (08:12)
[2017-05-17] MEDS: PANTOPRAZOLE 40 MG VIAL IV SCH (08:38)
[2017-05-17] MEDS: methylPREDNISolone SOD SUC 40 MG/1 ML VIAL IV SCH ×2 (08:38→21:03)
[2017-05-17] MEDS: VANCOMYCIN INJ 750 MG in SODIUM CHLORIDE 0.9% 250 ML IV SCH ×2 (08:39→21:44)
[2017-05-17] MEDS: ASPIRIN CHEW 81 MG TABLET PO SCH (08:39)
[2017-05-17] MEDS: FAT EMULSION 20% 250 ML IV SCH (13:44)
[2017-05-17] MEDS: TRACE ELEMENTS (5) 1 ML, MULTIVITAMIN INJ 10 ML, INSULIN REGULAR 50 UNIT in AMINO ACIDS... IV SCH (13:46)
[2017-05-17] MEDS: PROPOFOL 1,000 MG/100 ML BOTTLE IV SCH ×2 (18:47→23:07)
[2017-05-17] MEDS: NOREPINEPHRINE 8 MG in SODIUM CHLORIDE 0.9% 242 ML IV SCH (18:48)
[2017-05-18] MEDS: INSULIN LISPRO 100 UNIT/ML SUBCUT SCH ×4 (00:47→17:57)
[2017-05-18 04:49] LABS: Eosinophils % 0.1 % (0.00-10.9); Hemoglobin 9.5 GM/DL (14.0-18.0); Immature Granulocytes % 0.7 %; Immature Granulocytes Absolute 0.09 #; Lymphocytes # 0.6 10*3/uL (1.4-4.0); Lymphocytes % 4.8 % (21.2-54.2); Mean Corpuscular HGB Conc 32.8 GM/DL (32-36); Mean Corpuscular Hemoglobin 32 PG (27-34); Mean Corpuscular Volume 98.6 FL (87-102); Monocytes # 0.5 10*3/uL (0.11-0.8); Neutrophils % 90.4 % (38.7-73.9); Platelet Count 194 T/CUMM (130-400); Red Blood Count 2.94 MC/CUMM (3.8-5.5); Red Cell Distribution Width 13.7 % (9.3-17.3); White Blood Count 12.1 T/CUMM (4-12)
[2017-05-18] MEDS: ALBUTEROL/IPRATROPIUM 3 ML NEB RESP TX SCH ×4 (04:50→15:29)
[2017-05-18 04:58] LABS: Calcium 8.1 MG/DL (8.5-10.1); Osmolality,Calculated 293.3 MOS/KG (273-304); Potassium 4.6 MMOL/L (3.5-5.1)
[2017-05-18 05:13] LABS: ABG Base Excess 1.7 MMOL/L (-2.5-2.5); ABG Oxygen Saturation 98.4 % (95-100); ABG PCO2 41.2 MM HG (35-48); ABG PH 7.415 (7.35-7.45); ABG TCO2 23.4 MMOL/L (23-27)
[2017-05-18] MEDS: PIPERACILLIN/TAZOBACTAM 3,375 MG in SODIUM CHLORIDE 0.9% 100 ML IV SCH (05:15)
[2017-05-18] MEDS: VANCOMYCIN INJ 750 MG in SODIUM CHLORIDE 0.9% 250 ML IV SCH ×3 (05:15→13:29)
[2017-05-18] MEDS: ENOXAPARIN 40 MG/0.4 ML SYRINGE SUBCUT SCH (06:00)
[2017-05-18 06:56] LABS: Band Neutrophils 1 % (0-10); Lymphocytes 6 % (20-55); Myelocytes 1 %; Segmented Neutrophils 92 % (50-85)
[2017-05-18 06:58] LABS: Total Cells Counted 100
[2017-05-18 06:59] LABS: Platelet Estimate Normal
[2017-05-18] MEDS: ASPIRIN CHEW 81 MG TABLET PO SCH (08:02)
[2017-05-18] MEDS: methylPREDNISolone SOD SUC 40 MG/1 ML VIAL IV SCH (08:06)
[2017-05-18] MEDS: PANTOPRAZOLE 40 MG VIAL IV SCH (08:07)
[2017-05-18] MEDS: TRACE ELEMENTS (5) 1 ML, MULTIVITAMIN INJ 10 ML, INSULIN REGULAR 50 UNIT in AMINO ACIDS... IV SCH (12:09)
[2017-05-18] MEDS: NOREPINEPHRINE 8 MG in SODIUM CHLORIDE 0.9% 242 ML IV SCH ×2 (13:26→18:02)
[2017-05-18] MEDS: FAT EMULSION 20% 250 ML IV SCH (13:27)
[2017-05-18] MEDS: PROPOFOL 1,000 MG/100 ML BOTTLE IV SCH (16:21)
[2017-05-18 17:53] VITALS: BP 127/72
== END 2017-05-18 18:15 | DRG 4 ==
LOC: N.TELES 13:22 → SUPCPDRO 13:22 → SUATTDRO 13:22 → N.ICU 05-09 16:37
PROVIDERS: ADMIT Internal Medicine; ATTEND Hospitalist
PROC: CLCCHCL (ICD-10-PCS; 2017-05-07 10:45)
PROC: LAPCHOL (2017-05-09 13:19)

== ENCOUNTER 2017-06-07 05:45 | Inpatient (IN) ==
[2017-06-07] MEDS ORDERED: ceFAZolin 1,000 MG in SYRINGE 1 EACH IV ONE (06:32)
[2017-06-07] MEDS ORDERED: ceFAZolin 1,000 MG VIAL ONE (06:53)
[2017-06-07] MEDS ORDERED: SODIUM CHLORIDE 0.9% 1,000 ML IV SCH (07:00)
[2017-06-07] MEDS ORDERED: LORazepam 2 MG/1 ML VIAL IV ONE (08:22)
[2017-06-07] MEDS ORDERED: LIDOCAINE 100 MG/5 ML SYRINGE ONE (11:10)
[2017-06-07] MEDS ORDERED: PROPOFOL 200 MG/20 ML VIAL IV ONE (11:10)
[2017-06-07] MEDS ORDERED: ONDANSETRON 4 MG/2 ML VIAL IV PRN (11:18)
[2017-06-07] MEDS ORDERED: ALBUTEROL/IPRATROPIUM 3 ML NEB RESP TX PRN (11:45)
[2017-06-07] MEDS ORDERED: MAGNESIUM SULF RIDER 2 GM in PREMIX 1 EACH IV PRN (11:49)
[2017-06-07] MEDS: INSULIN LISPRO 100 UNIT/ML SUBCUT SCH ×3 (12:32→23:53)
[2017-06-07] MEDS: MUPIROCIN 2% OINT 22 GM TUBE TOP SCH ×3 (12:34→20:11)
[2017-06-07] MEDS ORDERED: POTASSIUM CHLORIDE RIDER 10 MEQ in PREMIX 1 EACH IV ONE (13:00)
[2017-06-07] MEDS: LORazepam 2 MG/1 ML VIAL IV PRN ×2 (13:32→22:03)
[2017-06-07] MEDS: CLINDAMYCIN INJ 900 MG in PREMIX 1 EACH IV SCH ×2 (13:34→20:09)
[2017-06-07] MEDS: DIGOXIN 0.5 MG/2 ML AMP IV SCH (13:34)
[2017-06-07] MEDS: PHENYTOIN 100 MG/2 ML VIAL IV SCH (13:35)
[2017-06-07] MEDS: PANTOPRAZOLE 40 MG VIAL IV SCH (13:35)
[2017-06-07] MEDS: methylPREDNISolone SOD SUC 40 MG/1 ML VIAL IV SCH (13:35)
[2017-06-07] MEDS: CHLORHEXIDINE 0.12% ORAL RINSE 60 ML BOTTLE SWISH/SPIT SCH ×2 (13:36→20:19)
[2017-06-07] MEDS: DEXTROSE 5% LACTATED RINGERS 1,000 ML IV SCH (13:50)
[2017-06-07] MEDS ORDERED: METOPROLOL TARTRATE 5 MG/5 ML VIAL IV SCH (14:00)
[2017-06-07] MEDS: ALBUTEROL/IPRATROPIUM 3 ML NEB RESP TX SCH ×2 (14:22→19:20)
[2017-06-07] MEDS: PIPERACILLIN/TAZOBACTAM 3,375 MG in SODIUM CHLORIDE 0.9% 100 ML IV SCH ×2 (14:59→20:10)
[2017-06-07] MEDS ORDERED: METOPROLOL TARTRATE 5 MG/5 ML VIAL IV PRN (15:01)
[2017-06-07] MEDS: INSULIN GLARGINE 100 UNIT/ML SUBCUT SCH (20:11)
[2017-06-07] MEDS: HALOPERIDOL 5 MG/ML AMP IV SCH (20:19)
[2017-06-08] MEDS: PHENYTOIN 100 MG/2 ML VIAL IV SCH ×2 (00:28→11:56)
[2017-06-08] MEDS: ALBUTEROL/IPRATROPIUM 3 ML NEB RESP TX SCH ×4 (00:31→19:59)
[2017-06-08] MEDS: CLINDAMYCIN INJ 900 MG in PREMIX 1 EACH IV SCH ×3 (02:52→19:24)
[2017-06-08] MEDS: PIPERACILLIN/TAZOBACTAM 3,375 MG in SODIUM CHLORIDE 0.9% 100 ML IV SCH ×3 (03:44→20:07)
[2017-06-08] MEDS: INSULIN LISPRO 100 UNIT/ML SUBCUT SCH ×3 (06:15→17:21)
[2017-06-08] MEDS ORDERED: DEXT 5% NACL 0.45% KCL 10 MEQ 10 MEQ/1,000 ML BAG IV SCH (06:30)
[2017-06-08 06:49] LABS: Basophils # 0.1 10*3/uL (0.0-0.2); Basophils % 0.6 % (0.0-0.8); Eosinophils # 0.1 10*3/uL (0.0-0.87); Hematocrit 36.1 VOL% (42.0-52.0); Hemoglobin 11.8 GM/DL (14.0-18.0); Immature Granulocytes % 0.3 %; Immature Granulocytes Absolute 0.03 #; Lymphocytes # 0.9 10*3/uL (1.4-4.0); Lymphocytes % 10.2 % (21.2-54.2); Mean Corpuscular HGB Conc 32.7 GM/DL (32-36); Mean Corpuscular Hemoglobin 33 PG (27-34); Mean Corpuscular Volume 101.1 FL (87-102); Mean Platelet Volume 9.9 FL (9.6-12.0); Monocytes # 0.7 10*3/uL (0.11-0.8); Monocytes % 8.3 % (1.7-12.7); Neutrophils % 79.6 % (38.7-73.9); Platelet Count 371 T/CUMM (130-400); Red Blood Count 3.57 MC/CUMM (3.8-5.5); Red Cell Distribution Width 15.7 % (9.3-17.3); White Blood Count 8.8 T/CUMM (4-12)
[2017-06-08 07:26] LABS: Calcium 9.5 MG/DL (8.5-10.1); Osmolality,Calculated 292.4 MOS/KG (273-304); Potassium 3.3 MMOL/L (3.5-5.1)
[2017-06-08] MEDS: LORazepam 2 MG/1 ML VIAL IV PRN ×3 (07:48→21:20)
[2017-06-08] MEDS: cefTRIAXone 1,000 MG in SYRINGE 1 EACH IV SCH (08:38)
[2017-06-08] MEDS: HALOPERIDOL 5 MG/ML AMP IV SCH ×2 (08:39→20:29)
[2017-06-08] MEDS: PANTOPRAZOLE 40 MG VIAL IV SCH (08:39)
[2017-06-08] MEDS: methylPREDNISolone SOD SUC 40 MG/1 ML VIAL IV SCH (08:39)
[2017-06-08] MEDS: MUPIROCIN 2% OINT 22 GM TUBE TOP SCH ×3 (08:40→20:31)
[2017-06-08] MEDS: CHLORHEXIDINE 0.12% ORAL RINSE 60 ML BOTTLE SWISH/SPIT SCH ×2 (08:40→20:32)
[2017-06-08] MEDS: DEXTROSE 5% LACTATED RINGERS 1,000 ML IV SCH ×2 (08:44→16:27)
[2017-06-08] MEDS: POTASSIUM CHLORIDE RIDER 10 MEQ in PREMIX 1 EACH IV PRN ×4 (08:54→11:57)
[2017-06-08] MEDS: DIGOXIN 0.5 MG/2 ML AMP IV SCH (13:11)
[2017-06-08] MEDS: INSULIN GLARGINE 100 UNIT/ML SUBCUT SCH (21:15)
[2017-06-09] MEDS: INSULIN LISPRO 100 UNIT/ML SUBCUT SCH ×4 (00:21→17:20)
[2017-06-09] MEDS: PHENYTOIN 100 MG/2 ML VIAL IV SCH ×2 (00:31→12:42)
[2017-06-09] MEDS: ALBUTEROL/IPRATROPIUM 3 ML NEB RESP TX SCH ×4 (01:03→19:50)
[2017-06-09] MEDS: DEXTROSE 5% LACTATED RINGERS 1,000 ML IV SCH ×3 (03:56→16:05)
[2017-06-09] MEDS: CLINDAMYCIN INJ 900 MG in PREMIX 1 EACH IV SCH ×3 (03:57→21:52)
[2017-06-09] MEDS: PIPERACILLIN/TAZOBACTAM 3,375 MG in SODIUM CHLORIDE 0.9% 100 ML IV SCH ×3 (04:29→21:53)
[2017-06-09 05:13] LABS: Basophils % 0.5 % (0.0-0.8); Eosinophils # 0.1 10*3/uL (0.0-0.87); Eosinophils % 0.9 % (0.00-10.9); Hematocrit 33.3 VOL% (42.0-52.0); Hemoglobin 10.6 GM/DL (14.0-18.0); Immature Granulocytes % 0.4 %; Immature Granulocytes Absolute 0.03 #; Lymphocytes # 1.2 10*3/uL (1.4-4.0); Lymphocytes % 15.6 % (21.2-54.2); Mean Corpuscular HGB Conc 31.8 GM/DL (32-36); Mean Corpuscular Hemoglobin 32 PG (27-34); Mean Corpuscular Volume 100.3 FL (87-102); Mean Platelet Volume 10.3 FL (9.6-12.0); Monocytes # 0.6 10*3/uL (0.11-0.8); Monocytes % 7.9 % (1.7-12.7); Neutrophils # 5.9 10*3/uL (1.4-7.4); Neutrophils % 74.7 % (38.7-73.9); Platelet Count 336 T/CUMM (130-400); Red Blood Count 3.32 MC/CUMM (3.8-5.5); Red Cell Distribution Width 15.8 % (9.3-17.3); White Blood Count 7.9 T/CUMM (4-12)
[2017-06-09 05:43] LABS: Osmolality,Calculated 288.6 MOS/KG (273-304)
[2017-06-09] MEDS: methylPREDNISolone SOD SUC 40 MG/1 ML VIAL IV SCH (08:56)
[2017-06-09] MEDS: cefTRIAXone 1,000 MG in SYRINGE 1 EACH IV SCH (08:56)
[2017-06-09] MEDS: MUPIROCIN 2% OINT 22 GM TUBE TOP SCH ×3 (08:56→21:54)
[2017-06-09] MEDS: PANTOPRAZOLE 40 MG VIAL IV SCH (08:56)
[2017-06-09] MEDS: HALOPERIDOL 5 MG/ML AMP IV SCH ×2 (08:57→21:53)
[2017-06-09] MEDS: CHLORHEXIDINE 0.12% ORAL RINSE 60 ML BOTTLE SWISH/SPIT SCH ×2 (08:57→21:58)
[2017-06-09] MEDS: POTASSIUM CHLORIDE RIDER 10 MEQ in PREMIX 1 EACH IV PRN ×5 (10:00→14:28)
[2017-06-09] MEDS: DIGOXIN 0.5 MG/2 ML AMP IV SCH (12:47)
[2017-06-09] MEDS: LORazepam 2 MG/1 ML VIAL IV PRN (15:59)
[2017-06-09] MEDS: INSULIN GLARGINE 100 UNIT/ML SUBCUT SCH (21:53)
[2017-06-10] MEDS: ALBUTEROL/IPRATROPIUM 3 ML NEB RESP TX SCH ×4 (01:33→19:21)
[2017-06-10] MEDS: PHENYTOIN 100 MG/2 ML VIAL IV SCH ×3 (03:10→23:27)
[2017-06-10] MEDS: DEXTROSE 5% LACTATED RINGERS 1,000 ML IV SCH ×5 (04:06→20:32)
[2017-06-10] MEDS: INSULIN LISPRO 100 UNIT/ML SUBCUT SCH ×5 (04:40→23:26)
[2017-06-10] MEDS: PIPERACILLIN/TAZOBACTAM 3,375 MG in SODIUM CHLORIDE 0.9% 100 ML IV SCH ×3 (05:21→20:34)
[2017-06-10] MEDS: CLINDAMYCIN INJ 900 MG in PREMIX 1 EACH IV SCH ×3 (05:21→20:35)
[2017-06-10 05:36] LABS: Calcium 9.3 MG/DL (8.5-10.1); Osmolality,Calculated 283.8 MOS/KG (273-304); Potassium 3.7 MMOL/L (3.5-5.1)
[2017-06-10 07:29] LABS: Basophils % 0.5 % (0.0-0.8); Eosinophils # 0.1 10*3/uL (0.0-0.87); Eosinophils % 0.9 % (0.00-10.9); Immature Granulocytes % 0.3 %; Immature Granulocytes Absolute 0.02 #; Lymphocytes # 1.1 10*3/uL (1.4-4.0); Lymphocytes % 15.4 % (21.2-54.2); Mean Corpuscular HGB Conc 33.3 GM/DL (32-36); Mean Corpuscular Hemoglobin 33 PG (27-34); Mean Corpuscular Volume 97.6 FL (87-102); Mean Platelet Volume 9.9 FL (9.6-12.0); Monocytes # 0.7 10*3/uL (0.11-0.8); Monocytes % 9.7 % (1.7-12.7); Neutrophils # 5.4 10*3/uL (1.4-7.4); Neutrophils % 73.2 % (38.7-73.9); Platelet Count 328 T/CUMM (130-400); Red Blood Count 3.38 MC/CUMM (3.8-5.5); White Blood Count 7.4 T/CUMM (4-12)
[2017-06-10 07:40] LABS: INR 1.1; PT Patient Result 11.9 SECS
[2017-06-10] MEDS: PANTOPRAZOLE 40 MG VIAL IV SCH (08:34)
[2017-06-10] MEDS: MUPIROCIN 2% OINT 22 GM TUBE TOP SCH ×3 (08:35→20:35)
[2017-06-10] MEDS: HALOPERIDOL 5 MG/ML AMP IV SCH ×2 (08:35→20:34)
[2017-06-10] MEDS: CHLORHEXIDINE 0.12% ORAL RINSE 60 ML BOTTLE SWISH/SPIT SCH ×2 (08:35→20:34)
[2017-06-10] MEDS: methylPREDNISolone SOD SUC 40 MG/1 ML VIAL IV SCH (08:35)
[2017-06-10] MEDS: cefTRIAXone 1,000 MG in SYRINGE 1 EACH IV SCH (09:53)
[2017-06-10] MEDS: DIGOXIN 0.5 MG/2 ML AMP IV SCH (12:43)
[2017-06-10] MEDS: LORazepam 2 MG/1 ML VIAL IV PRN ×2 (16:50→23:27)
[2017-06-10] MEDS: INSULIN GLARGINE 100 UNIT/ML SUBCUT SCH (20:34)
[2017-06-11] MEDS: ALBUTEROL/IPRATROPIUM 3 ML NEB RESP TX SCH ×4 (01:19→19:21)
[2017-06-11] MEDS: CLINDAMYCIN INJ 900 MG in PREMIX 1 EACH IV SCH ×3 (02:57→20:26)
[2017-06-11] MEDS: PIPERACILLIN/TAZOBACTAM 3,375 MG in SODIUM CHLORIDE 0.9% 100 ML IV SCH ×3 (03:19→20:26)
[2017-06-11] MEDS: DEXTROSE 5% LACTATED RINGERS 1,000 ML IV SCH ×3 (04:18→19:55)
[2017-06-11] MEDS: INSULIN LISPRO 100 UNIT/ML SUBCUT SCH ×4 (05:14→23:26)
[2017-06-11 07:13] LABS: Allen Test Positive
[2017-06-11 07:20] LABS: ABG Base Excess 7.9 MMOL/L (-2.5-2.5); ABG HCO3 33.5 MMOL/L (20-26); ABG Oxygen Saturation 96.3 % (95-100); ABG PCO2 51.6 MM HG (35-48); ABG PO2 85.7 MM HG (80-95); ABG TCO2 35.1 MMOL/L (23-27)
[2017-06-11] MEDS: HALOPERIDOL 5 MG/ML AMP IV SCH ×2 (08:19→20:25)
[2017-06-11] MEDS: cefTRIAXone 1,000 MG in SYRINGE 1 EACH IV SCH (08:19)
[2017-06-11] MEDS: MEROPENEM 500 MG in SYRINGE 1 EACH IV SCH ×3 (08:19→23:12)
[2017-06-11] MEDS: methylPREDNISolone SOD SUC 40 MG/1 ML VIAL IV SCH (08:20)
[2017-06-11] MEDS: MUPIROCIN 2% OINT 22 GM TUBE TOP SCH ×3 (08:20→20:27)
[2017-06-11] MEDS: PANTOPRAZOLE 40 MG VIAL IV SCH (08:20)
[2017-06-11] MEDS: CHLORHEXIDINE 0.12% ORAL RINSE 60 ML BOTTLE SWISH/SPIT SCH ×2 (08:20→20:27)
[2017-06-11] MEDS: PHENYTOIN 100 MG/2 ML VIAL IV SCH ×2 (12:19→23:26)
[2017-06-11] MEDS: DIGOXIN 0.5 MG/2 ML AMP IV SCH (13:45)
[2017-06-11] MEDS ORDERED: GLYCOPYRROLATE 0.4 MG/2 ML VIAL ONE (16:09)
[2017-06-11] MEDS ORDERED: MIDAZOLAM 2 MG/2 ML VIAL ONE (16:09)
[2017-06-11] MEDS ORDERED: KETAMINE 500 MG/10 ML VIAL ONE (16:12)
[2017-06-11] MEDS ORDERED: SODIUM CHLORIDE 0.9% 500 ML IV ONE (16:22)
[2017-06-11] MEDS: PROPOFOL 1,000 MG/100 ML BOTTLE IV SCH (16:44)
[2017-06-11 17:16] LABS: ABG Base Excess 9.2 MMOL/L (-2.5-2.5); ABG HCO3 33.1 MMOL/L (20-26); ABG Oxygen Saturation 98.6 % (95-100); ABG PCO2 42.1 MM HG (35-48); ABG PH 7.513 (7.35-7.45); ABG PO2 156.7 MM HG (80-95); ABG TCO2 34.4 MMOL/L (23-27); Allen Test Positive; Pt O2 Delivery Device Ventilator
[2017-06-11] MEDS: INSULIN GLARGINE 100 UNIT/ML SUBCUT SCH (20:25)
[2017-06-11] MEDS ORDERED: NOREPINEPHRINE 4 MG/4 ML VIAL IV ONE (21:48)
[2017-06-11 22:07] LABS: Apearance,Urine CLEAR (Clear); Bacteria,Urine Occasional /HPF (Few); Bilirubin,Urine Negative (Negative); Blood, Urine Negative (Negative); Glucose,Urine (UA) 150 mg/dL (Negative); Granular Casts,Urine 1 /LPF (0-1); Hyaline Casts,Urine 6 /LPF (0-3); Ketones,Urine Negative (Negative); Mucus,Urine Occasional /LPF (Occasional); Nitrite,Urine Negative (Negative); Protein,Urine 30 MG/DL; RBC,Urine 8 /HPF (0-4); Squamous Epithelial Cell,Urine Occasional /HPF (0-10); Urine Color Yellow (Yellow); Urine Specific Gravity 1.014 (1.001-1.035); Urine Urobilinogen < 2.0 EU/DL (0.2-1.0); WBC,Urine 3 /HPF (0-6)
[2017-06-11] MEDS: NOREPINEPHRINE 8 MG in SODIUM CHLORIDE 0.9% 242 ML IV PRN (23:07)
[2017-06-12] MEDS: ALBUTEROL/IPRATROPIUM 3 ML NEB RESP TX SCH ×4 (00:43→19:58)
[2017-06-12] MEDS: LORazepam 2 MG/1 ML VIAL IV PRN (01:58)
[2017-06-12] MEDS: DEXTROSE 5% LACTATED RINGERS 1,000 ML IV SCH ×3 (02:54→19:44)
[2017-06-12] MEDS: CLINDAMYCIN INJ 900 MG in PREMIX 1 EACH IV SCH ×3 (02:54→19:45)
[2017-06-12] MEDS: PIPERACILLIN/TAZOBACTAM 3,375 MG in SODIUM CHLORIDE 0.9% 100 ML IV SCH (03:01)
[2017-06-12 05:24] LABS: ABG Base Excess 5.4 MMOL/L (-2.5-2.5); ABG HCO3 29.4 MMOL/L (20-26); ABG Oxygen Saturation 99.6 % (95-100); ABG PCO2 44.3 MM HG (35-48); ABG PH 7.442 (7.35-7.45); ABG TCO2 27.2 MMOL/L (23-27); Allen Test Positive; Pt O2 Delivery Device Ventilator
[2017-06-12] MEDS: INSULIN LISPRO 100 UNIT/ML SUBCUT SCH ×4 (05:37→23:50)
[2017-06-12] MEDS: MEROPENEM 500 MG in SYRINGE 1 EACH IV SCH ×3 (06:04→22:26)
[2017-06-12] MEDS ORDERED: ALBUMIN 25% 25 GM in PREMIX 1 EACH IV ONE (06:44)
[2017-06-12 07:30] LABS: Hematocrit 32.8 VOL% (42.0-52.0); Hemoglobin 10.5 GM/DL (14.0-18.0); Mean Corpuscular Volume 100.9 FL (87-102); Red Blood Count 3.25 MC/CUMM (3.8-5.5); White Blood Count 10.3 T/CUMM (4-12)
[2017-06-12 07:31] LABS: Basophils # 0.1 10*3/uL (0.0-0.2); Basophils % 0.5 % (0.0-0.8); Eosinophils % 0.1 % (0.00-10.9); Immature Granulocytes % 0.8 %; Immature Granulocytes Absolute 0.08 #; Lymphocytes % 9.6 % (21.2-54.2); Mean Corpuscular Hemoglobin 32 PG (27-34); Mean Platelet Volume 10.1 FL (9.6-12.0); Monocytes # 0.7 10*3/uL (0.11-0.8); Monocytes % 7.2 % (1.7-12.7); Neutrophils # 8.4 10*3/uL (1.4-7.4); Neutrophils % 81.8 % (38.7-73.9); Red Cell Distribution Width 15.9 % (9.3-17.3)
[2017-06-12 07:34] LABS: Platelet Count 310 T/CUMM (130-400)
[2017-06-12 07:53] LABS: Calcium 8.7 MG/DL (8.5-10.1); Osmolality,Calculated 288.8 MOS/KG (273-304); Potassium 2.9 MMOL/L (3.5-5.1)
[2017-06-12 09:02] LABS: Anisocytosis Slight
[2017-06-12 09:03] LABS: Platelet Estimate Normal
[2017-06-12] MEDS ORDERED: POTASSIUM CHLORIDE INJ 50 MEQ in SODIUM CHLORIDE 0.9% 500 ML IV SCH (09:30)
[2017-06-12] MEDS: HALOPERIDOL 5 MG/ML AMP IV SCH ×2 (09:40→22:26)
[2017-06-12] MEDS: methylPREDNISolone SOD SUC 40 MG/1 ML VIAL IV SCH (09:41)
[2017-06-12] MEDS: MUPIROCIN 2% OINT 22 GM TUBE TOP SCH ×3 (09:57→21:29)
[2017-06-12] MEDS: PANTOPRAZOLE 40 MG VIAL IV SCH (09:58)
[2017-06-12] MEDS: CHLORHEXIDINE 0.12% ORAL RINSE 60 ML BOTTLE SWISH/SPIT SCH ×2 (09:58→22:25)
[2017-06-12] MEDS ORDERED: POTASSIUM CHLORIDE RIDER 10 MEQ in PREMIX 1 EACH IV PRN (11:00)
[2017-06-12] MEDS ORDERED: GLUCAGON 1 MG VIAL IM PRN (13:49)
[2017-06-12] MEDS ORDERED: DEXTROSE 10% 1,000 ML IV PRN (13:49)
[2017-06-12] MEDS ORDERED: DEXTROSE 50% 25 GM/50 ML VIAL IV PRN (13:49)
[2017-06-12] MEDS: PHENYTOIN 100 MG/2 ML VIAL IV SCH ×2 (14:00→23:46)
[2017-06-12] MEDS: DIGOXIN 0.5 MG/2 ML AMP IV SCH (14:00)
[2017-06-12] MEDS: FAT EMULSION 20% 250 ML IV SCH (16:33)
[2017-06-12] MEDS ORDERED: LYTES IV SCH (17:00)
[2017-06-12] MEDS ORDERED: TRACE ELEMENTS (5) 1 ML, MULTIVITAMIN INJ 10 ML in AMINO ACIDS/DEXT/LYTE 4.25-15% 2,000 ML IV SCH (17:00)
[2017-06-12] MEDS ORDERED: DEXT IV SCH (17:00)
[2017-06-12] MEDS ORDERED: AMINO ACIDS IV SCH (17:00)
[2017-06-12] MEDS: NOREPINEPHRINE 8 MG in SODIUM CHLORIDE 0.9% 242 ML IV PRN (19:38)
[2017-06-12] MEDS: PROPOFOL 1,000 MG/100 ML BOTTLE IV SCH (19:43)
[2017-06-12] MEDS: INSULIN GLARGINE 100 UNIT/ML SUBCUT SCH (22:26)
[2017-06-13] MEDS: ALBUTEROL/IPRATROPIUM 3 ML NEB RESP TX SCH ×4 (01:13→19:49)
[2017-06-13] MEDS: DEXTROSE 5% LACTATED RINGERS 1,000 ML IV SCH (01:33)
[2017-06-13] MEDS: CLINDAMYCIN INJ 900 MG in PREMIX 1 EACH IV SCH ×3 (03:30→20:18)
[2017-06-13 03:37] LABS: ABG Base Excess 6.2 MMOL/L (-2.5-2.5); ABG HCO3 31.8 MMOL/L (20-26); ABG Oxygen Saturation 70.8 % (95-100); ABG PCO2 51.7 MM HG (35-48); ABG PH 7.407 (7.35-7.45); ABG TCO2 33.4 MMOL/L (23-27)
[2017-06-13 03:43] LABS: ABG PO2 39.8 MM HG (80-95)
[2017-06-13 04:03] LABS: ABG Base Excess 5.9 MMOL/L (-2.5-2.5); ABG HCO3 30.5 MMOL/L (20-26); ABG Oxygen Saturation 97.4 % (95-100); ABG PCO2 44.6 MM HG (35-48); ABG PH 7.453 (7.35-7.45); ABG PO2 103.5 MM HG (80-95); ABG TCO2 31.9 MMOL/L (23-27)
[2017-06-13] MEDS ORDERED: ACETAMINOPHEN 650 MG SUPP RECTAL PRN (06:12)
[2017-06-13 06:26] LABS: Basophils % 0.4 % (0.0-0.8); Eosinophils % 0.2 % (0.00-10.9); Hemoglobin 8.8 GM/DL (14.0-18.0); Immature Granulocytes % 0.4 %; Immature Granulocytes Absolute 0.02 #; Lymphocytes # 0.5 10*3/uL (1.4-4.0); Lymphocytes % 10.4 % (21.2-54.2); Mean Corpuscular HGB Conc 33.8 GM/DL (32-36); Mean Corpuscular Hemoglobin 33 PG (27-34); Mean Corpuscular Volume 97.4 FL (87-102); Mean Platelet Volume 10.3 FL (9.6-12.0); Monocytes # 0.2 10*3/uL (0.11-0.8); Monocytes % 4.8 % (1.7-12.7); Neutrophils % 83.8 % (38.7-73.9); Platelet Count 168 T/CUMM (130-400); Red Blood Count 2.67 MC/CUMM (3.8-5.5); Red Cell Distribution Width 16.1 % (9.3-17.3); White Blood Count 4.8 T/CUMM (4-12)
[2017-06-13 06:41] LABS: Calcium 8.3 MG/DL (8.5-10.1); Osmolality,Calculated 294.4 MOS/KG (273-304); Potassium 2.9 MMOL/L (3.5-5.1)
[2017-06-13] MEDS: PROPOFOL 1,000 MG/100 ML BOTTLE IV SCH ×2 (06:45→17:48)
[2017-06-13] MEDS: MEROPENEM 500 MG in SYRINGE 1 EACH IV SCH ×3 (07:09→23:00)
[2017-06-13] MEDS: INSULIN LISPRO 100 UNIT/ML SUBCUT SCH ×3 (07:09→18:38)
[2017-06-13] MEDS: HALOPERIDOL 5 MG/ML AMP IV SCH ×2 (09:00→20:30)
[2017-06-13] MEDS: methylPREDNISolone SOD SUC 40 MG/1 ML VIAL IV SCH (09:00)
[2017-06-13] MEDS: CHLORHEXIDINE 0.12% ORAL RINSE 60 ML BOTTLE SWISH/SPIT SCH ×2 (09:00→20:31)
[2017-06-13] MEDS: MUPIROCIN 2% OINT 22 GM TUBE TOP SCH ×2 (09:10→17:45)
[2017-06-13] MEDS ORDERED: DEXTROSE 5% IV SCH (10:38)
[2017-06-13] MEDS ORDERED: POTASSIUM CHLORIDE IV SCH (10:38)
[2017-06-13] MEDS ORDERED: LACTATED RINGERS IV SCH (10:38)
[2017-06-13] MEDS ORDERED: MAGNESIUM SULF RIDER 2 GM in PREMIX 1 EACH IV PRN (10:39)
[2017-06-13] MEDS ORDERED: MAGNESIUM SULF RIDER 4 GM in PREMIX 1 EACH IV PRN (10:39)
[2017-06-13] MEDS: POTASSIUM CHLORIDE RIDER 20 MEQ in PREMIX 1 EACH IV SCH ×3 (11:01→13:41)
[2017-06-13] MEDS: PANTOPRAZOLE 40 MG VIAL IV SCH (11:08)
[2017-06-13] MEDS: PHENYTOIN 100 MG/2 ML VIAL IV SCH (13:50)
[2017-06-13] MEDS: DEXT 5% LACT RING KCL 20 MEQ 20 MEQ/1,000 ML BAG IV SCH ×2 (14:08→21:40)
[2017-06-13] MEDS: DIGOXIN 0.5 MG/2 ML AMP IV SCH (14:09)
[2017-06-13] MEDS ORDERED: cefOXitin 2,000 MG in SYRINGE 1 EACH IV ONE (15:00)
[2017-06-13] MEDS ORDERED: POTASSIUM PHOSPHATE 30 MMOL in SODIUM CHLORIDE 0.9% 250 ML IV ONE (15:21)
[2017-06-13] MEDS: FAT EMULSION 20% 250 ML IV SCH (16:00)
[2017-06-13] MEDS ORDERED: TRACE ELEMENTS (5) 1 ML, MULTIVITAMIN INJ 10 ML in AMINO ACIDS/DEXT/LYTE 4.25-15% 2,000 ML IV SCH (17:00)
[2017-06-13] MEDS: INSULIN GLARGINE 100 UNIT/ML SUBCUT SCH (20:30)
[2017-06-14] MEDS: ALBUTEROL/IPRATROPIUM 3 ML NEB RESP TX SCH ×4 (00:20→19:23)
[2017-06-14] MEDS: INSULIN LISPRO 100 UNIT/ML SUBCUT SCH ×5 (01:01→23:18)
[2017-06-14] MEDS: PHENYTOIN 100 MG/2 ML VIAL IV SCH ×3 (01:02→23:46)
[2017-06-14] MEDS: MUPIROCIN 2% OINT 22 GM TUBE TOP SCH ×4 (01:03→22:23)
[2017-06-14] MEDS: CLINDAMYCIN INJ 900 MG in PREMIX 1 EACH IV SCH ×3 (03:34→20:40)
[2017-06-14] MEDS: PROPOFOL 1,000 MG/100 ML BOTTLE IV SCH ×2 (03:35→20:41)
[2017-06-14 04:19] LABS: ABG Base Excess 5.6 MMOL/L (-2.5-2.5); ABG HCO3 29.5 MMOL/L (20-26); ABG Oxygen Saturation 99.5 % (95-100); ABG PCO2 40.2 MM HG (35-48); ABG PH 7.474 (7.35-7.45); ABG TCO2 27.5 MMOL/L (23-27)
[2017-06-14] MEDS: DEXT 5% LACT RING KCL 20 MEQ 20 MEQ/1,000 ML BAG IV SCH (05:34)
[2017-06-14] MEDS: MEROPENEM 500 MG in SYRINGE 1 EACH IV SCH ×3 (06:00→23:19)
[2017-06-14 06:15] LABS: Basophils % 0.4 % (0.0-0.8); Eosinophils # 0.1 10*3/uL (0.0-0.87); Eosinophils % 1.4 % (0.00-10.9); Hematocrit 25.8 VOL% (42.0-52.0); Hemoglobin 8.7 GM/DL (14.0-18.0); Immature Granulocytes % 0.7 %; Immature Granulocytes Absolute 0.04 #; Lymphocytes # 0.5 10*3/uL (1.4-4.0); Lymphocytes % 9.7 % (21.2-54.2); Mean Corpuscular HGB Conc 33.7 GM/DL (32-36); Mean Corpuscular Hemoglobin 33 PG (27-34); Mean Corpuscular Volume 98.9 FL (87-102); Mean Platelet Volume 10.7 FL (9.6-12.0); Monocytes # 0.3 10*3/uL (0.11-0.8); Monocytes % 5.6 % (1.7-12.7); Neutrophils # 4.6 10*3/uL (1.4-7.4); Neutrophils % 82.2 % (38.7-73.9); Platelet Count 137 T/CUMM (130-400); Red Blood Count 2.61 MC/CUMM (3.8-5.5); Red Cell Distribution Width 16.6 % (9.3-17.3); White Blood Count 5.6 T/CUMM (4-12)
[2017-06-14] MEDS: DEXTROSE 5% NACL 0.45% 1,000 ML IV SCH ×2 (06:15→16:55)
[2017-06-14 06:42] LABS: Calcium 7.8 MG/DL (8.5-10.1); Osmolality,Calculated 288.7 MOS/KG (273-304); Potassium 4.3 MMOL/L (3.5-5.1)
[2017-06-14] MEDS: PANTOPRAZOLE 40 MG VIAL IV SCH (09:07)
[2017-06-14] MEDS: FLUCONAZOLE INJ 200 MG in PREMIX 1 EACH IV SCH (09:07)
[2017-06-14] MEDS: methylPREDNISolone SOD SUC 40 MG/1 ML VIAL IV SCH (09:08)
[2017-06-14] MEDS: CHLORHEXIDINE 0.12% ORAL RINSE 60 ML BOTTLE SWISH/SPIT SCH ×2 (09:08→22:23)
[2017-06-14] MEDS: HALOPERIDOL 5 MG/ML AMP IV SCH ×2 (09:08→22:22)
[2017-06-14 09:42] LABS: Allen Test Positive; Pt O2 Delivery Device Ventilator
[2017-06-14] MEDS ORDERED: SEVOFLURANE 1 UNIT/15 MINUTE INH ONE (09:43)
[2017-06-14] MEDS ORDERED: ROCURONIUM 100 MG/10 ML VIAL IV ONE (09:44)
[2017-06-14] MEDS ORDERED: MIDAZOLAM 2 MG/2 ML VIAL ONE (09:44)
[2017-06-14] MEDS ORDERED: fentaNYL 100 MCG/2 ML VIAL ONE (09:44)
[2017-06-14 09:45] LABS: ABG Base Excess 4.8 MMOL/L (-2.5-2.5); ABG HCO3 28.5 MMOL/L (20-26); ABG PCO2 45.9 MM HG (35-48); ABG PH 7.427 (7.35-7.45); ABG PO2 54.6 MM HG (80-95); ABG TCO2 25.1 MMOL/L (23-27)
[2017-06-14] MEDS: DIGOXIN 0.5 MG/2 ML AMP IV SCH (12:02)
[2017-06-14] MEDS: FAT EMULSION 20% 250 ML IV SCH (14:33)
[2017-06-14] MEDS ORDERED: TRACE ELEMENTS (5) 1 ML, MULTIVITAMIN INJ 10 ML, INSULIN REGULAR 30 UNIT in AMINO ACIDS... IV SCH (17:00)
[2017-06-14] MEDS: DORNASE ALFA 2.5 MG/2.5 ML VIAL RESP TX SCH (19:23)
[2017-06-14] MEDS: INSULIN GLARGINE 100 UNIT/ML SUBCUT SCH (22:23)
[2017-06-15] MEDS: HYDROmorphone 2 MG/1 ML VIAL IV PRN ×2 (00:34→17:36)
[2017-06-15] MEDS: ALBUTEROL/IPRATROPIUM 3 ML NEB RESP TX SCH ×4 (01:05→19:32)
[2017-06-15] MEDS: CLINDAMYCIN INJ 900 MG in PREMIX 1 EACH IV SCH ×3 (03:09→21:10)
[2017-06-15] MEDS: DEXTROSE 5% NACL 0.45% 1,000 ML IV SCH ×2 (04:01→08:16)
[2017-06-15 04:05] LABS: ABG HCO3 29.9 MMOL/L (20-26); ABG Oxygen Saturation 90.6 % (95-100); ABG PCO2 51.4 MM HG (35-48); ABG PH 7.382 (7.35-7.45); ABG PO2 62.9 MM HG (80-95); ABG TCO2 31.4 MMOL/L (23-27); Allen Test Positive; Pt O2 Delivery Device Ventilator
[2017-06-15] MEDS: DILTIAZEM INJ 100 MG in SODIUM CHLORIDE 0.9% 100 ML IV PRN ×2 (05:05→14:04)
[2017-06-15] MEDS: MEROPENEM 500 MG in SYRINGE 1 EACH IV SCH ×2 (06:08→15:38)
[2017-06-15] MEDS: INSULIN LISPRO 100 UNIT/ML SUBCUT SCH ×3 (06:08→17:46)
[2017-06-15] MEDS: DORNASE ALFA 2.5 MG/2.5 ML VIAL RESP TX SCH ×2 (07:24→19:36)
[2017-06-15] MEDS: PANTOPRAZOLE 40 MG VIAL IV SCH (07:59)
[2017-06-15] MEDS: HALOPERIDOL 5 MG/ML AMP IV SCH ×2 (07:59→21:11)
[2017-06-15] MEDS: MUPIROCIN 2% OINT 22 GM TUBE TOP SCH ×3 (08:00→21:11)
[2017-06-15] MEDS: methylPREDNISolone SOD SUC 40 MG/1 ML VIAL IV SCH (08:00)
[2017-06-15] MEDS: FLUCONAZOLE INJ 200 MG in PREMIX 1 EACH IV SCH (08:00)
[2017-06-15] MEDS: CHLORHEXIDINE 0.12% ORAL RINSE 60 ML BOTTLE SWISH/SPIT SCH ×2 (08:00→21:11)
[2017-06-15 09:44] LABS: Basophils % 0.5 % (0.0-0.8); Eosinophils % 0.2 % (0.00-10.9); Hematocrit 28.7 VOL% (42.0-52.0); Hemoglobin 9.2 GM/DL (14.0-18.0); Immature Granulocytes % 1.5 %; Lymphocytes # 0.4 10*3/uL (1.4-4.0); Lymphocytes % 6.6 % (21.2-54.2); Mean Corpuscular HGB Conc 32.1 GM/DL (32-36); Mean Corpuscular Hemoglobin 33 PG (27-34); Mean Corpuscular Volume 101.8 FL (87-102); Mean Platelet Volume 10.6 FL (9.6-12.0); Monocytes # 0.3 10*3/uL (0.11-0.8); Neutrophils # 5.7 10*3/uL (1.4-7.4); Neutrophils % 87.2 % (38.7-73.9); Platelet Count 128 T/CUMM (130-400); Red Blood Count 2.82 MC/CUMM (3.8-5.5); Red Cell Distribution Width 15.9 % (9.3-17.3); White Blood Count 6.6 T/CUMM (4-12)
[2017-06-15 10:05] LABS: Band Neutrophils 4 % (0-10); Giant Platelets Few; Hypochromasia 1+; Lymphocytes 11 % (20-55); Nucleated Red Blood Cells 2 (0-5); Ovalocytes Slight; Platelet Estimate Normal; Segmented Neutrophils 81 % (50-85); Total Cells Counted 100
[2017-06-15 10:37] LABS: Calcium 7.4 MG/DL (8.5-10.1); Potassium 4.4 MMOL/L (3.5-5.1)
[2017-06-15] MEDS: PHENYTOIN 100 MG/2 ML VIAL IV SCH (11:36)
[2017-06-15] MEDS: DIGOXIN 0.5 MG/2 ML AMP IV SCH (12:51)
[2017-06-15] MEDS: PROPOFOL 1,000 MG/100 ML BOTTLE IV SCH (21:10)
[2017-06-15] MEDS: INSULIN GLARGINE 100 UNIT/ML SUBCUT SCH (21:11)
[2017-06-16] MEDS: MEROPENEM 500 MG in SYRINGE 1 EACH IV SCH ×4 (00:09→23:31)
[2017-06-16] MEDS: PHENYTOIN 100 MG/2 ML VIAL IV SCH ×3 (00:10→23:32)
[2017-06-16] MEDS: INSULIN LISPRO 100 UNIT/ML SUBCUT SCH ×4 (00:11→18:36)
[2017-06-16] MEDS: ALBUTEROL/IPRATROPIUM 3 ML NEB RESP TX SCH ×4 (00:37→19:20)
[2017-06-16] MEDS: CLINDAMYCIN INJ 900 MG in PREMIX 1 EACH IV SCH ×3 (03:08→20:53)
[2017-06-16 04:39] LABS: ABG Base Excess 6.3 MMOL/L (-2.5-2.5); ABG HCO3 30.1 MMOL/L (20-26); ABG Oxygen Saturation 95.6 % (95-100); ABG PCO2 48.2 MM HG (35-48); ABG PH 7.426 (7.35-7.45); ABG PO2 72.8 MM HG (80-95); ABG TCO2 28.7 MMOL/L (23-27); Pt O2 Delivery Device Ventilator
[2017-06-16 05:24] LABS: Basophils % 0.2 % (0.0-0.8); Eosinophils % 0.2 % (0.00-10.9); Hemoglobin 8.7 GM/DL (14.0-18.0); Immature Granulocytes % 1.4 %; Immature Granulocytes Absolute 0.07 #; Lymphocytes # 0.7 10*3/uL (1.4-4.0); Lymphocytes % 13.2 % (21.2-54.2); Mean Corpuscular HGB Conc 33.5 GM/DL (32-36); Mean Corpuscular Hemoglobin 33 PG (27-34); Mean Corpuscular Volume 98.5 FL (87-102); Mean Platelet Volume 11.2 FL (9.6-12.0); Monocytes # 0.4 10*3/uL (0.11-0.8); Platelet Count 128 T/CUMM (130-400); Red Blood Count 2.64 MC/CUMM (3.8-5.5); Red Cell Distribution Width 15.7 % (9.3-17.3); White Blood Count 5.2 T/CUMM (4-12)
[2017-06-16 05:36] LABS: Calcium 7.8 MG/DL (8.5-10.1); Osmolality,Calculated 287.7 MOS/KG (273-304); Potassium 4.3 MMOL/L (3.5-5.1)
[2017-06-16 05:51] LABS: Hypochromasia 1+; Ovalocytes Slight; Platelet Estimate Normal
[2017-06-16] MEDS ORDERED: FUROSEMIDE 40 MG/4 ML VIAL IV ONE (07:16)
[2017-06-16] MEDS: DORNASE ALFA 2.5 MG/2.5 ML VIAL RESP TX SCH ×2 (07:19→19:22)
[2017-06-16] MEDS: FLUCONAZOLE INJ 200 MG in PREMIX 1 EACH IV SCH (08:08)
[2017-06-16] MEDS: HALOPERIDOL 5 MG/ML AMP IV SCH ×2 (08:09→20:54)
[2017-06-16] MEDS: methylPREDNISolone SOD SUC 40 MG/1 ML VIAL IV SCH (08:09)
[2017-06-16] MEDS: PANTOPRAZOLE 40 MG VIAL IV SCH (08:09)
[2017-06-16] MEDS: MUPIROCIN 2% OINT 22 GM TUBE TOP SCH ×3 (08:09→20:54)
[2017-06-16] MEDS: CHLORHEXIDINE 0.12% ORAL RINSE 60 ML BOTTLE SWISH/SPIT SCH ×2 (08:09→20:54)
[2017-06-16] MEDS: DILTIAZEM INJ 100 MG in SODIUM CHLORIDE 0.9% 100 ML IV PRN ×2 (08:12→19:45)
[2017-06-16] MEDS ORDERED: ACETAMINOPHEN 325 MG TABLET PO PRN ×2 (08:21→08:24)
[2017-06-16] MEDS: DIGOXIN 0.5 MG/2 ML AMP IV SCH (12:49)
[2017-06-16] MEDS: PROPOFOL 1,000 MG/100 ML BOTTLE IV SCH ×2 (15:22→20:16)
[2017-06-16] MEDS: INSULIN GLARGINE 100 UNIT/ML SUBCUT SCH (20:53)
[2017-06-17] MEDS: ALBUTEROL/IPRATROPIUM 3 ML NEB RESP TX SCH ×4 (00:30→19:59)
[2017-06-17] MEDS: INSULIN LISPRO 100 UNIT/ML SUBCUT SCH ×5 (01:07→23:27)
[2017-06-17] MEDS: CLINDAMYCIN INJ 900 MG in PREMIX 1 EACH IV SCH ×3 (04:14→20:17)
[2017-06-17 04:47] LABS: ABG HCO3 31.7 MMOL/L (20-26); ABG Oxygen Saturation 92.9 % (95-100); ABG PCO2 51.8 MM HG (35-48); ABG PH 7.423 (7.35-7.45); ABG PO2 63.6 MM HG (80-95); ABG TCO2 30.9 MMOL/L (23-27); Allen Test Positive; Pt O2 Delivery Device Ventilator
[2017-06-17 05:05] LABS: Basophils % 0.1 % (0.0-0.8); Eosinophils % 0.2 % (0.00-10.9); Hematocrit 27.4 VOL% (42.0-52.0); Immature Granulocytes % 0.7 %; Immature Granulocytes Absolute 0.06 #; Lymphocytes # 1.1 10*3/uL (1.4-4.0); Lymphocytes % 12.3 % (21.2-54.2); Mean Corpuscular HGB Conc 32.8 GM/DL (32-36); Mean Corpuscular Hemoglobin 32 PG (27-34); Mean Corpuscular Volume 98.6 FL (87-102); Mean Platelet Volume 11.2 FL (9.6-12.0); Monocytes # 0.6 10*3/uL (0.11-0.8); Monocytes % 6.6 % (1.7-12.7); NRBC # 0.02 10*3/uL; Neutrophils # 7.3 10*3/uL (1.4-7.4); Neutrophils % 80.1 % (38.7-73.9); Platelet Count 165 T/CUMM (130-400); Red Blood Count 2.78 MC/CUMM (3.8-5.5); Red Cell Distribution Width 15.8 % (9.3-17.3); White Blood Count 9.1 T/CUMM (4-12)
[2017-06-17 05:33] LABS: Alanine Aminotransferase 120 U/L (16-61); Albumin 1.3 G/DL (3.4-5.0); Alkaline Phosphatase 246 U/L (45-117); Aspartate Amino Transferase 201 U/L (0-37); Bilirubin,Total < 0.39 MG/DL (0.2-1.0); Blood Urea Nitrogen 17 MG/DL (7-18); Calcium 8.1 MG/DL (8.5-10.1); Glucose 83 MG/DL (74-106); Osmolality,Calculated 294.3 MOS/KG (273-304); Potassium 4.2 MMOL/L (3.5-5.1); Sodium 148 MMOL/L (136-145)
[2017-06-17] MEDS ORDERED: FUROSEMIDE 40 MG/4 ML VIAL IV ONE (06:00)
[2017-06-17] MEDS: MEROPENEM 500 MG in SYRINGE 1 EACH IV SCH ×3 (06:16→23:27)
[2017-06-17] MEDS: DORNASE ALFA 2.5 MG/2.5 ML VIAL RESP TX SCH ×2 (07:38→19:59)
[2017-06-17] MEDS: PROPOFOL 1,000 MG/100 ML BOTTLE IV SCH ×2 (08:37→15:46)
[2017-06-17] MEDS: MUPIROCIN 2% OINT 22 GM TUBE TOP SCH ×3 (08:53→20:17)
[2017-06-17] MEDS: PANTOPRAZOLE 40 MG VIAL IV SCH (08:53)
[2017-06-17] MEDS: FLUCONAZOLE INJ 200 MG in PREMIX 1 EACH IV SCH (08:53)
[2017-06-17] MEDS: CHLORHEXIDINE 0.12% ORAL RINSE 60 ML BOTTLE SWISH/SPIT SCH ×2 (08:53→20:17)
[2017-06-17] MEDS: HALOPERIDOL 5 MG/ML AMP IV SCH ×2 (08:54→20:17)
[2017-06-17] MEDS: methylPREDNISolone SOD SUC 40 MG/1 ML VIAL IV SCH (08:54)
[2017-06-17] MEDS: DILTIAZEM INJ 100 MG in SODIUM CHLORIDE 0.9% 100 ML IV PRN (11:21)
[2017-06-17] MEDS: DIGOXIN 0.5 MG/2 ML AMP IV SCH (12:18)
[2017-06-17] MEDS: FOSPHENYTOIN 100 MG.PE/2 ML VIAL IV SCH (12:18)
[2017-06-17] MEDS: INSULIN GLARGINE 100 UNIT/ML SUBCUT SCH (20:17)
[2017-06-18] MEDS: PROPOFOL 1,000 MG/100 ML BOTTLE IV SCH (01:00)
[2017-06-18] MEDS: FOSPHENYTOIN 100 MG.PE/2 ML VIAL IV SCH (01:18)
[2017-06-18] MEDS: ALBUTEROL/IPRATROPIUM 3 ML NEB RESP TX SCH ×2 (01:25→07:34)
[2017-06-18] MEDS: CLINDAMYCIN INJ 900 MG in PREMIX 1 EACH IV SCH ×2 (03:33→10:50)
[2017-06-18 04:28] LABS: ABG Base Excess 7.7 MMOL/L (-2.5-2.5); ABG HCO3 31.6 MMOL/L (20-26); ABG Oxygen Saturation 99.5 % (95-100); ABG PCO2 47.8 MM HG (35-48); ABG PH 7.445 (7.35-7.45); ABG TCO2 30.3 MMOL/L (23-27)
[2017-06-18 05:04] LABS: Basophils % 0.1 % (0.0-0.8); Hematocrit 25.4 VOL% (42.0-52.0); Hemoglobin 8.4 GM/DL (14.0-18.0); Immature Granulocytes % 0.9 %; Immature Granulocytes Absolute 0.08 #; Lymphocytes % 11.9 % (21.2-54.2); Mean Corpuscular HGB Conc 33.1 GM/DL (32-36); Mean Corpuscular Hemoglobin 33 PG (27-34); Mean Corpuscular Volume 98.4 FL (87-102); Mean Platelet Volume 11.6 FL (9.6-12.0); Monocytes # 0.6 10*3/uL (0.11-0.8); Monocytes % 6.5 % (1.7-12.7); NRBC # 0.03 10*3/uL; Neutrophils # 6.9 10*3/uL (1.4-7.4); Neutrophils % 80.6 % (38.7-73.9); Platelet Count 163 T/CUMM (130-400); Red Blood Count 2.58 MC/CUMM (3.8-5.5); Red Cell Distribution Width 15.6 % (9.3-17.3); White Blood Count 8.6 T/CUMM (4-12)
[2017-06-18 05:36] LABS: Calcium 8.1 MG/DL (8.5-10.1); Osmolality,Calculated 303.1 MOS/KG (273-304); Potassium 4.1 MMOL/L (3.5-5.1)
[2017-06-18] MEDS: INSULIN LISPRO 100 UNIT/ML SUBCUT SCH (05:52)
[2017-06-18] MEDS: MEROPENEM 500 MG in SYRINGE 1 EACH IV SCH (06:00)
[2017-06-18] MEDS: DORNASE ALFA 2.5 MG/2.5 ML VIAL RESP TX SCH (07:34)
[2017-06-18] MEDS: FLUCONAZOLE INJ 200 MG in PREMIX 1 EACH IV SCH (07:47)
[2017-06-18] MEDS: CHLORHEXIDINE 0.12% ORAL RINSE 60 ML BOTTLE SWISH/SPIT SCH (08:26)
[2017-06-18] MEDS: HALOPERIDOL 5 MG/ML AMP IV SCH (08:26)
[2017-06-18] MEDS: methylPREDNISolone SOD SUC 40 MG/1 ML VIAL IV SCH (08:27)
[2017-06-18] MEDS: PANTOPRAZOLE 40 MG VIAL IV SCH (08:27)
[2017-06-18] MEDS: MUPIROCIN 2% OINT 22 GM TUBE TOP SCH (08:27)
[2017-06-18 11:10] VITALS: BP 111/51
== END 2017-06-18 12:15 | DRG 3 ==
LOC: N.GILAB 05:45 → N.ICU 09:50
PROVIDERS: ADMIT Internal Medicine Pulmonary Disease; ATTEND Internal Medicine Pulmonary Disease